=== PATIENT | female | born 1945 | race Caucasian/White ===

== ENCOUNTER 2017-06-28 17:32 | Inpatient (IN) | payer MEDICARE ==
[~2017-06-28] VITALS: Ht 165.1 cm; Wt 57.2 kg
[2017-06-28] VITALS (9 sets, daily range): BP systolic 55–139; BP diastolic 20–79
[2017-06-28] MEDS ORDERED: Isovue-300 100ml vial INJ PRN (18:00)
[2017-06-28] MEDS ORDERED: Pantoprazole Inj IVP ONE (18:00)
--- NOTE | 2017-06-28 18:05 | Emergency Room Report ---
History of Present Illness General Chief Complaint: Syncope Source: Patient, Family Member Present Illness HPI 71-year-old female presents with abdominal pain and syncopal episode that occurred today while walking She said she felt lightheaded, and she feels like she's had a lot of bowel movements, but no bloody bowel movements and no black tarry stools She reports no fevers, no chest pain, no shortness of breath, but does feel very weak in general, no focal weakness She reports she did not hit her head and has no injuries from the fall Allergies: Coded Allergies: CODEINE (Verified Allergy, Unknown, Itching, 06/28/17) NAPROXEN (Verified Allergy, Unknown, 06/28/17) Patient History Past Medical History: see triage record Reviewed Nursing Documentation: PMH: Agreed; PSxH: Agreed Nursing Documentation-PMH Hx Hypertension: Yes Review of Systems All Other Systems: negative except mentioned in HPI Physical Exam Vital Signs Date Time Temp Pulse Resp B/P (MAP) Pulse Ox O2 Delivery O2 Flow Rate FiO2 06/28/17 17:30 98.4 93 18 75/53 98 98.4 Sp02 EP Interpretation: reviewed, normal - sats normal; but bp low, abnormal General Appearance: no apparent distress, alert, non-toxic Head: normocephalic Eyes: bilateral eye normal inspection, bilateral eye PERRL, bilateral eye EOMI ENT: normal ENT inspection, hearing grossly normal, normal pharynx, no angioedema, normal voice, moist mucus membranes Neck: normal inspection, full range of motion, supple, supple/symm/no masses Respiratory: chest non-tender, lungs clear, normal breath sounds, chest symmetrical, palpation of chest normal Cardiovascular #1: normal peripheral pulses, regular rate, rhythm Cardiovascular #2: 2+ radial (R), 2+ radial (L) Gastrointestinal: normal inspection, soft, no mass, no guarding, no rebound, tenderness - Diffuse Rectal: normal exam, normal rectal tone, heme negative stool, deferred Genitourinary: normal inspection, no CVA tenderness, ext genitalia/vag normal Musculoskeletal: back normal, gait/station normal, normal range of motion, non- tender, no calf tenderness Neurologic: alert, responsive, car scrubber III-XII nml as tested, motor strength/tone normal, sensory intact, speech normal Psychiatric: judgement/insight normal, memory normal, mood/affect normal, no suicidal/homicidal ideation Skin: normal color, no rash, warm/dry, normal turgor Lymphatic: no adenopathy Procedures Critical Care Time Critical Care Time 45 minutes of CC time excluding all procedures due to persistent hypotension and need for multiple re-evaluations. Central Line Central Line : Consent: Verbal Central Line Lumen: triple Maximal Sterile Barrier Tech: yes cap, yes mask, yes sterile gown, yes sterile gloves, yes large sterile sheet, yes hand hygiene, yes chlorhexidine prep Central Line Postion: femoral (R) Complications: none Central Line Post Position: sutured, good blood return Attempts: One Patient Tolerated: Well Complications: None Progress EBL 3cc Medical Decision Making Reaction to Intervention: Improved Diagnostic Impression: Primary Impression: Syncope Additional Impression: Hypotension ER Course Patient with initial hypotension and syncope Also abdominal pain and tenderness Labs not very revealing Stool samples heme-negative Patient became persistently hypotensive despite 3 L of fluids So was ensured to give 30 mL/kg saline, blood cultures, lactic acid, broad- spectrum antibiotics However, patient remained hypotensive on repeat focused sepsis exam Therefore a central line was placed and patient started on Levophed She still had abdominal tenderness and is pending CT scan Will give 1 dose of fentanyl for analgesia, patient already had PPI and H2 brent IV Patient with possible severe gastritis versus enteritis versus colitis versus peptic ulcer despite heme-negative stool Stools sent for c. diff, O&P, cultures, I gave levaquin and vancomycin, then Invanz, Amikacin ordered by Dr. Lennon who agreed to admit to ICU EKG Diagnostic Results EKG Time: 18:19 EP Interpretation: no st-t changes or twi, qtc prolonged at 516 Rate: bradycardiac Rhythm: NSR ST Segments: no acute changes Rhythm Strip Diag. Results Rhythm Strip Time: 18:04 EP Interpretation: yes Rate: 58 Rhythm: NSR, no PVC's, no ectopy Chest X-Ray Diagnostic Results Chest X-Ray Diagnostic Results : Chest X-Ray Ordered: Yes # of Views/Limited/Complete: 1 View Indication: Other EP Interpretation: Yes Interpretation: no consolidation, no effusion, no pneumothorax, no acute cardiopulmonary disease Impression: No acute disease Electronically Signed by: Erma Georges MD CT/MRI/US Diagnostic Results CT/MRI/US Diagnostic Results : Imaging Test Ordered: cta chest, abd/pelvis Impression no PE, multiple areas of inflamed bowel Last Vital Signs Date Time Temp Pulse Resp B/P (MAP) Pulse Ox O2 Delivery O2 Flow Rate FiO2 06/28/17 17:30 98.4 93 18 75/53 98 98.4 Status: improved Disposition: ADMITTED INPATIENT Condition: Serious Signed Out To: ERMA Soto M.D June 28, 2017 18:05
[2017-06-28 18:49] LABS: BASOPHILS % (AUTO) 0.7 % (0.0-2.0); EOSINOPHILS % (AUTO) 2.5 % (0.0-3.0); HEMATOCRIT 40.1 % (37.0-47.0); HEMOGLOBIN 13.4 G/DL (12.0-16.0); MEAN CORPUSCULAR VOLUME 88 FL (80-99); MONOCYTES % (AUTO) 5.7 % (1.0-10.0); NEUTROPHILS % (AUTO) 75.2 % (45.0-75.0); PLATELET COUNT 317 K/UL (150-450); RED BLOOD COUNT 4.57 M/UL (4.20-5.40); RED CELL DISTRIBUTION WIDTH 11.6 % (11.6-14.8); WHITE BLOOD COUNT 13.3 K/UL (4.8-10.8)
[2017-06-28 19:03] LABS: ANION GAP 11 mmol/L (5-15); BLOOD UREA NITROGEN 17 mg/dL (7-18); CALCIUM 8.1 MG/DL (8.5-10.1); CARBON DIOXIDE 24 MMOL/L (21-32); CHLORIDE 106 MMOL/L (98-107); POTASSIUM 2.9 MMOL/L (3.5-5.1); SODIUM 141 MMOL/L (136-145)
[2017-06-28 19:14] LABS: APPEARANCE,URINE CLEAR; BILIRUBIN, URINE NEGATIVE (NEGATIVE); GLUCOSE, URINE (UA) NEGATIVE (NEGATIVE); KETONES,URINE NEGATIVE (NEGATIVE); LEUKOCYTE ESTERASE ,URINE NEGATIVE (NEGATIVE); NITRITE,URINE NEGATIVE (NEGATIVE); PH,URINE 5 (4.5-8.0); PROTEIN,URINE 1+ (NEGATIVE); UROBILINOGEN,URINE NORMAL MG/DL (0.0-1.0)
[2017-06-28 19:15] LABS: COLOR,URINE YELLOW
[2017-06-28 19:16] LABS: ALANINE AMINOTRANSFERASE 19 U/L (12-78); ALBUMIN 2.8 G/DL (3.4-5.0); ALBUMIN/GLOBULIN RATIO 1.3 (1.0-2.7); ALKALINE PHOSPHATASE 98 U/L (46-116); ASPARTATE AMINO TRANSFERASE 16 U/L (15-37); BILIRUBIN,TOTAL 0.5 MG/DL (0.2-1.0); CKMB 1.2 NG/ML (0.0-3.6); CREATINE KINASE 65 U/L (26-308)
[2017-06-28] MEDS ORDERED: Isovue-370 150ml vial INJ PRN (19:30)
[2017-06-28] MEDS ORDERED: fentaNYL 100 mcg/2 mL IV ONE (19:30)
[2017-06-28] MEDS ORDERED: NS 1000ml 1,600 ML IVLG ONE (21:20)
[2017-06-28] MEDS ORDERED: fentaNYL 100 mcg/2 mL IV SCH (21:20)
[2017-06-28] MEDS ORDERED: Vancomycin 1 GM in NS 275 ML IVPB ONE (21:20)
[2017-06-28] MEDS ORDERED: Potassium Chloride 40 MEQ in Sodium Chloride 500ML 550 ML IVPB ONE (22:00)
[2017-06-28] MEDS ORDERED: Miralax 17gm pkt ORAL PRN (22:30)
[2017-06-28] MEDS ORDERED: Albuterol/Ipratropium 3ml neb HHN PRN (22:30)
[2017-06-28] MEDS ORDERED: Vancomycin 500 MG in NS 110 ML IV SCH (23:15)
[2017-06-28] MEDS ORDERED: Vancomycin 1 GM in D5W 275 ML IV SCH (23:45)
[2017-06-29] VITALS (33 sets, daily range): BP systolic 92–146; BP diastolic 44–103
[2017-06-29] MEDS ORDERED: Ertapenem 1 GM in NS 55 ML IV SCH ×2
[2017-06-29] MEDS ORDERED: AMIKACIN IV SCH (01:00)
[2017-06-29] MEDS ORDERED: NS IV SCH (01:00)
[2017-06-29] MEDS: Morphine Sulfate 4mg/ml Inj IVP PRN ×2 (02:40→07:37)
[2017-06-29 04:51] LABS: ALANINE AMINOTRANSFERASE 7 U/L (12-78); ALBUMIN 2.8 G/DL (3.4-5.0); ALBUMIN/GLOBULIN RATIO 1.1 (1.0-2.7); ALKALINE PHOSPHATASE 85 U/L (46-116); ANION GAP 11 mmol/L (5-15); ASPARTATE AMINO TRANSFERASE 25 U/L (15-37); BILIRUBIN,DIRECT 0.1 MG/DL (0.0-0.3); BILIRUBIN,TOTAL 0.4 MG/DL (0.2-1.0); BLOOD UREA NITROGEN 16 mg/dL (7-18); CALCIUM 7.4 MG/DL (8.5-10.1); CARBON DIOXIDE 19 MMOL/L (21-32); CHLORIDE 112 MMOL/L (98-107); POTASSIUM 4.2 MMOL/L (3.5-5.1); SODIUM 142 MMOL/L (136-145)
[2017-06-29 07:03] LABS: HEMATOCRIT 39.3 % (37.0-47.0); MEAN CORPUSCULAR VOLUME 89 FL (80-99); PLATELET COUNT 246 K/UL (150-450); RED BLOOD COUNT 4.44 M/UL (4.20-5.40); RED CELL DISTRIBUTION WIDTH 12.1 % (11.6-14.8); WHITE BLOOD COUNT 16.2 K/UL (4.8-10.8)
[2017-06-29] MEDS ORDERED: NS 500ML ONE (09:33)
[2017-06-29] MEDS ORDERED: Tubing IV Secondary IV ONE (09:33)
[2017-06-29] MEDS: Pantoprazole Inj IVP SCH ×2 (09:39→21:19)
[2017-06-29] MEDS: Heparin 5000 units/ml inj SUBQ SCH ×2 (09:40→20:30)
--- NOTE | 2017-06-29 10:06 | Diagnostic Imaging Report ---
Indication: Chest pain Technique: Continuous helical transaxial imaging of the chest was obtained from the thoracic inlet to the upper abdomen during rapid intravenous contrast administration. Arterial phase of enhancement obtained. Coronal 2-D reformats were also obtained and maximum intensity projection images in multiple planes. Study obtained in a Siemens sensation [address] Automatic Exposure Control was utilized. Total Dose length Product (DLP): 1795.[address] Dose Index Volume (CTDIvol): 21.41,15.19,16.58 mGy Comparison: None Findings: There is reasonable opacification of the pulmonary artery. There is no filling defect to suggest pulmonary embolus. The aorta show some mural calcium. There is no evidence of dissection or aneurysm involving the thoracic. Heterogeneity of the thyroid gland noted. There is no airspace disease within the lungs identified. Minimal basilar atelectasis noted. No adenopathy or abnormal fluid collections are seen within the chest. The axilla appear clear bilaterally. IMPRESSION: No acute findings. No evidence of pulmonary embolus. Heterogeneous thyroid gland. Consider further evaluation with ultrasound Other incidental findings as above. [facility] has communicated the preliminary results to the Emergency Department. Their findings are largely concordant with this report. The CT scanner at [facility] is accredited by the [employer] and the scans are performed using dose optimization techniques as appropriate to a performed exam including Automatic Exposure control.
--- NOTE | 2017-06-29 10:37 | Diagnostic Imaging Report ---
Indication: Abdominal pain Technique: Continuous helical transaxial imaging of the abdomen and pelvis was obtained from the lung bases to the pubic symphysis during intravenous contrast administration. Coronal 2-D reformats were also obtained. Study obtained in a Siemens sensation [address] Automatic Exposure Control was utilized. Total Dose length Product (DLP): 1795.[address] Dose Index Volume (CTDIvol): 21.41,15.19,16.58 mGy Comparison: None Findings: There is diffuse abnormality of multiple loops of small bowel which demonstrate wall thickening and enhancement. The findings are indicative of diffuse enteritis. There is also likely colitis presently given the enhancement of the wall of the colon. In terms of the colon of the main area of thickening involves the left hemicolon wall. Please correlate clinically. There is a small amount of ascites. There is a nodular enhancing lesion within the right lobe of the liver in the posterior segment likely a hemangioma measuring about 3 cm. This may be further evaluated. There is a 4-5 cm lobulated cystic liver focus adjacent to the intrahepatic portion of IVC right at the confluence of the middle hepatic vein and right hepatic vein. Other smaller cystic foci noted within the liver. Cholecystectomy is present. The biliary ducts are mildly prominent especially the CBD. There is no evidence on this exam for CBD stone. There is a right femoral venous catheter with the tip situated in the right common iliac vein in good position. IMPRESSION: Diffuse enterocolitis with the wall thickening and abnormal enhancement of multiple loops of small bowel as well as colon. Please correlate clinically. Mild ascites Hemangioma suspected within the right lobe of the liver. Prominent liver cyst. Atherosclerotic disease. Degenerative changes of the spine. Other incidental findings as above. [facility] has communicated the preliminary results to the Emergency Department. Their findings are largely concordant with this report. The CT scanner at [facility] is accredited by the [employer] and the scans are performed using dose optimization techniques as appropriate to a performed exam including Automatic Exposure control.
--- NOTE | 2017-06-29 11:27 | History and Physical ---
History of Present Illness General Date patient seen: June 29, 2017 Reason for Hospitalization: Syncope Present Illness HPI 71-year-old female with hx of IBD brought in by paramedics with CC of abdominal pain, diarrhea and syncopal episode that occurred today while walking. She reported no fevers, no chest pain, no shortness of breath, but did feel very weak in general, no focal weakness. She was bradycardic and hypotensive in ER. She was started on Levophed drip and IV fluids and transferred to ICU. Allergies: Coded Allergies: CODEINE (Verified Allergy, Unknown, Itching, 06/28/17) NAPROXEN (Verified Allergy, Unknown, 06/28/17) Patient History Healthcare decision maker Resuscitation status Advanced Directive on File No Past Medical/Surgical History Past Medical/Surgical History: (1) IBD (inflammatory bowel disease) Review of Systems All Other Systems: negative except mentioned in HPI Physical Exam General Appearance: cachetic Lines, tubes and drains: peripheral HEENT: normocephalic, atraumatic Neck: non-tender, normal alignment Respiratory/Chest: chest wall non-tender, lungs clear Breasts: no masses Cardiovascular/Chest: normal peripheral pulses, normal rate Abdomen: normal bowel sounds, non tender Genitourinary/Rectal: normal genital exam Extremities: normal range of motion Skin Exam: normal pigmentation Neurologic: community specialist II-XII grossly normal Last 24 Hour Vital Signs Date Time Temp Pulse Resp B/P (MAP) Pulse Ox O2 Delivery O2 Flow Rate FiO2 06/29/17 10:20 97.8 06/29/17 09:40 97.8 06/29/17 09:00 85 21 113/56 99 Room Air 06/29/17 08:00 83 20 104/47 100 Room Air 06/29/17 08:00 84 06/29/17 07:37 97.8 06/29/17 07:00 82 23 106/54 100 Room Air 06/29/17 06:00 82 24 134/65 100 Room Air 06/29/17 05:45 82 24 106/64 100 Room Air 06/29/17 05:30 82 24 114/63 99 Room Air 06/29/17 05:30 97.8 06/29/17 05:15 83 23 114/63 99 Room Air 06/29/17 05:00 83 23 92/61 99 Room Air 06/29/17 05:00 92/70 06/29/17 04:30 76 23 121/61 99 Room Air 06/29/17 04:01 97.8 06/29/17 04:00 97.9 74 23 113/57 99 Room Air 97.9 06/29/17 04:00 72 06/29/17 04:00 113/51 06/29/17 03:30 73 19 97/58 99 Room Air 06/29/17 03:00 73 16 102/55 100 Room Air 06/29/17 03:00 97/58 06/29/17 02:40 97.8 06/29/17 02:30 80 20 97/49 100 Room Air 06/29/17 02:00 117/58 06/29/17 02:00 74 20 117/58 100 Room Air 06/29/17 01:30 79 20 125/88 99 Room Air 06/29/17 01:15 80 21 120/64 100 Room Air 06/29/17 01:00 125/88 06/29/17 01:00 78 22 122/70 100 Room Air 06/29/17 00:45 79 21 108/59 100 Room Air 06/29/17 00:30 79 23 120/46 100 Room Air 06/29/17 00:15 75 22 116/44 92 Room Air 06/29/17 00:00 97.8 69 20 146/103 100 Room Air 97.8 06/29/17 00:00 146/103 06/28/17 23:45 64 17 120/53 100 Room Air 06/28/17 23:45 68/52 06/28/17 23:30 70 19 68/52 98 Room Air 06/28/17 23:19 62 06/28/17 23:15 73 18 139/65 99 Room Air 06/28/17 23:00 145/121 06/28/17 23:00 97.7 62 16 127/56 100 Room Air 97.7 06/28/17 22:48 98.4 49 14 121/79 100 98.4 06/28/17 21:54 98.4 49 14 121/79 100 98.4 06/28/17 21:40 81/46 06/28/17 21:35 85/47 06/28/17 21:30 84/44 06/28/17 20:47 98.4 49 14 116/54 100 98.4 06/28/17 20:31 78/42 06/28/17 20:30 90/42 06/28/17 20:25 54/45 06/28/17 20:24 71/47 06/28/17 20:20 81/51 06/28/17 20:15 71/47 06/28/17 19:19 98.4 49 14 85/47 100 98.4 06/28/17 18:00 57 11 55/20 99 06/28/17 17:35 98.4 18 75/53 98 98.4 06/28/17 17:30 98.4 93 18 75/53 98 98.4 Intake and Output 06/28/17 06/29/17 19:00 07:00 Intake Total 3000 ml 973.37 ml Balance 3000 ml 973.37 ml Intake IV Total 973.37 ml Other 3000 ml Laboratory Tests Test 06/28/17 18:20 06/29/17 04:00 06/29/17 06:00 06/29/17 08:37 White Blood Count 13.3 K/UL (4.8-10.8) H 16.2 K/UL (4.8-10.8) H Red Blood Count 4.57 M/UL (4.20-5.40) 4.44 M/UL (4.20-5.40) Hemoglobin 13.4 G/DL (12.0-16.0) 13.0 G/DL (12.0-16.0) Hematocrit 40.1 % (37.0-47.0) 39.3 % (37.0-47.0) Mean Corpuscular Volume 88 FL (80-99) 89 FL (80-99) Mean Corpuscular Hemoglobin 29.4 PG (27.0-31.0) 29.2 PG (27.0-31.0) Mean Corpuscular Hemoglobin Concent 33.5 G/DL (32.0-36.0) 33.0 G/DL (32.0-36.0) Red Cell Distribution Width 11.6 % (11.6-14.8) 12.1 % (11.6-14.8) Platelet Count 317 K/UL (150-450) 246 K/UL (150-450) Mean Platelet Volume 6.0 FL (6.5-10.1) L 6.3 FL (6.5-10.1) L Neutrophils (%) (Auto) 75.2 % (45.0-75.0) H % (45.0-75.0) Lymphocytes (%) (Auto) 16.0 % (20.0-45.0) L % (20.0-45.0) Monocytes (%) (Auto) 5.7 % (1.0-10.0) % (1.0-10.0) Eosinophils (%) (Auto) 2.5 % (0.0-3.0) % (0.0-3.0) Basophils (%) (Auto) 0.7 % (0.0-2.0) % (0.0-2.0) Urine Color Yellow Urine Appearance Clear Urine pH 5 (4.5-8.0) Urine Specific [place] 1.015 (1.005-1.035) Urine Protein 1+ (NEGATIVE) H Urine Glucose (UA) Negative (NEGATIVE) Urine Ketones Negative (NEGATIVE) Urine Occult Blood 2+ (NEGATIVE) H Urine Nitrite Negative (NEGATIVE) Urine Bilirubin Negative (NEGATIVE) Urine Urobilinogen Normal MG/DL (0.0-1.0) Urine Leukocyte Esterase Negative (NEGATIVE) Urine RBC 2-4 /HPF (0 - 2) H Urine WBC 0-2 /HPF (0 - 2) Urine Squamous Epithelial Cells Occasional /LPF Urine Bacteria Few /HPF (NONE) Sodium Level 141 MMOL/L (136-145) 142 MMOL/L (136-145) Potassium Level 2.9 MMOL/L (3.5-5.1) L 4.2 MMOL/L (3.5-5.1) Chloride Level 106 MMOL/L (98-107) 112 MMOL/L (98-107) H Carbon Dioxide Level 24 MMOL/L (21-32) 19 MMOL/L (21-32) L Anion Gap 11 mmol/L (5-15) 11 mmol/L (5-15) Blood Urea Nitrogen 17 mg/dL (7-18) 16 mg/dL (7-18) Creatinine 1.0 MG/DL (0.55-1.30) 1.0 MG/DL (0.55-1.30) Estimat Glomerular Filtration Rate mL/min (>60) mL/min (>60) Glucose Level 226 MG/DL (74-106) H 117 MG/DL (74-106) #H Lactic Acid Level 2.40 mmol/L (0.66-2.22) H 1.50 mmol/L (0.66-2.22) Calcium Level 8.1 MG/DL (8.5-10.1) L 7.4 MG/DL (8.5-10.1) L Total Bilirubin 0.5 MG/DL (0.2-1.0) 0.4 MG/DL (0.2-1.0) Aspartate Amino Transf (AST/SGOT) 16 U/L (15-37) 25 U/L (15-37) Alanine Aminotransferase (ALT/SGPT) 19 U/L (12-78) 7 U/L (12-78) L Alkaline Phosphatase 98 U/L (46-116) 85 U/L (46-116) Total Creatine Kinase 65 U/L (26-308) Creatine Kinase MB 1.2 NG/ML (0.0-3.6) Creatine Kinase MB Relative Index 1.8 Troponin I 0.000 ng/mL (0.000-0.056) Total Protein 5.0 G/DL (6.4-8.2) L 5.4 G/DL (6.4-8.2) L Albumin 2.8 G/DL (3.4-5.0) L 2.8 G/DL (3.4-5.0) L Globulin 2.2 g/dL 2.6 g/dL Albumin/Globulin Ratio 1.3 (1.0-2.7) 1.1 (1.0-2.7) Lipase 125 U/L (73-393) Direct Bilirubin 0.1 MG/DL (0.0-0.3) Differential Total Cells Counted 100 Neutrophils % (Manual) 93 % (45-75) H Lymphocytes % (Manual) 4 % (20-45) L Monocytes % (Manual) 3 % (1-10) Eosinophils % (Manual) 0 % (0-3) Basophils % (Manual) 0 % (0-2) Band Neutrophils 0 % (0-8) Platelet Estimate Adequate Platelet Morphology Normal Red Blood Cell Morphology Normal Arterial Blood pH 7.325 (7.350-7.450) Arterial Blood Partial Pressure CO2 38.4 mmHg (35.0-45.0) Arterial Blood Partial Pressure O2 80.3 mmHg (75.0-100.0) Arterial Blood HCO3 19.6 mmol/L (22.0-26.0) L Arterial Blood Oxygen Saturation 95.2 % (92.0-98.0) Arterial Blood Base Excess -5.9 Eduin Test Positive Height (Feet): 5 Height (Inches): 5.00 Weight (Pounds): 125 Medications Current Medications Medications (Trade) Dose Ordered Sig/Michael Route PRN Reason Start Time Stop Time Status Last Admin Dose Admin Acetaminophen (Tylenol) 650 mg Q4H PRN ORAL fever 06/28/17 22:30 07/28/17 22:29 06/29/17 10:20 Albuterol/ Ipratropium (Albuterol/ Ipratropium) 3 ml EVERY 4 HOURS PRN HHN Shortness of Breath 06/28/17 22:30 07/03/17 22:29 Amikacin Sulfate 780 mg/Sodium Chloride 113.12 ml @ 113.12 mls/hr Q36H IV 06/29/17 01:00 07/06/17 00:59 06/29/17 01:03 Ertapenem 1 gm/ Sodium Chloride 55 ml @ 110 mls/hr Q24H IV 06/29/17 00:00 07/04/17 00:00 06/29/17 00:30 Heparin Sodium (Porcine) (Heparin 5000 units/ml) 5,000 units EVERY 12 HOURS SUBQ 06/29/17 09:00 07/29/17 08:59 06/29/17 09:40 Iopamidol (Isovue-300 100ml) 100 ml NOW PRN INJ Radiology Procedure 06/28/17 18:00 Iopamidol (Isovue-370 150ml) 150 ml NOW PRN INJ Radiology Procedure 06/28/17 19:30 06/30/17 19:22 Levofloxacin 150 ml @ 150 mls/hr Q24H IVPB 06/28/17 23:00 06/29/17 22:59 06/28/17 23:09 Morphine Sulfate (Morphine Sulfate) 2 mg Q4H PRN IVP For Pain 06/29/17 02:00 07/06/17 01:59 06/29/17 07:37 Norepinephrine Bitartrate 4 mg/ Dextrose 254 ml @ 0 mls/hr Q24H IV 06/28/17 22:30 07/28/17 22:29 06/28/17 23:45 Ondansetron HCl (Zofran) 4 mg Q6H PRN IVP Nausea & Vomiting 06/28/17 22:30 07/28/17 22:29 06/29/17 06:21 Pantoprazole (Protonix) 40 mg DAILY IVP 06/29/17 09:00 07/29/17 08:59 06/29/17 09:39 Polyethylene Glycol (Miralax) 17 gm DAILYPRN PRN ORAL Constipation 06/28/17 22:30 07/28/17 22:29 Sodium Chloride 1,000 ml @ 100 mls/hr Q10H IVLG 06/28/17 22:17 07/28/17 22:16 06/29/17 09:39 Vancomycin HCl 500 mg/Sodium Chloride 110 ml @ 110 mls/hr ONCE IV 06/28/17 23:15 07/03/17 23:14 06/29/17 00:25 Vancomycin HCl 1 gm/Sodium Chloride 275 ml @ 183.3 mls/ hr Q24H IVPB 06/30/17 00:00 07/05/17 00:00 Assessment/Plan Problem List: (1) Shock ICD Codes: R57.9 - Shock, unspecified SNOMED: 24933850 (2) Acute encephalopathy ICD Codes: G93.40 - Encephalopathy, unspecified SNOMED: 87226540, 619470298 (3) Hypotension ICD Codes: I95.9 - Hypotension, unspecified SNOMED: 43231983 (4) Syncope ICD Codes: R55 - Syncope and collapse SNOMED: 985629787 (5) IBD (inflammatory bowel disease) ICD Codes: K52.9 - Noninfective gastroenteritis and colitis, unspecified SNOMED: 74736521 Assessment/Plan iv fluids titrate Levophed to MBP of 60 NS at 100 cc/hour stool panculture dvt prophylaxis GI evaluation Orville Lennon MD June 29, 2017 11:27
--- NOTE | 2017-06-29 11:34 | Diagnostic Imaging Report ---
Indication: Dyspnea Comparison: None A single view chest radiograph was obtained. Findings: Cardiomediastinal appearance is within normal limits for age. Aorta is slightly enlarged consistent with atherosclerosis. Pulmonary vascularity is appropriate. The diaphragmatic contour is smooth and costophrenic angles are sharp. No pleural effusions are identified. The bones are osteopenic. Impression: No acute findings
--- NOTE | 2017-06-29 12:19 | GI Initial Consult Note ---
History of Present Illness General Date patient seen: June 29, 2017 Time patient seen: 13:00 Reason for Hospitalization: Syncope Referring physician: PRINCESS HARRIS Reason for Consultation: COLITIS Present Illness HPI 71-year-old female presents with abdominal pain and syncopal episode that occurred today while walking She said she felt lightheaded, and she feels like she's had a lot of bowel movements, but no bloody bowel movements and no black tarry stools She reports no fevers, no chest pain, no shortness of breath, but does feel very weak in general, no focal weakness She reports she did not hit her head and has no injuries from the fall Med list reviewed/reconciled: Yes Allergies: Coded Allergies: CODEINE (Verified Allergy, Unknown, Itching, 06/28/17) NAPROXEN (Verified Allergy, Unknown, 06/28/17) Patient History PMH Narrative Past Medical History: see triage record Reviewed Nursing Documentation: PMH: Agreed; PSxH: Agreed Nursing Documentation-PMH Hx Hypertension: Yes Social History: Denies: smoking, alcohol use, drug use, other Review of Systems All Other Systems: negative except mentioned in HPI Physical Exam Vital Signs Date Time Temp Pulse Resp B/P (MAP) Pulse Ox O2 Delivery O2 Flow Rate FiO2 06/28/17 17:30 98.4 93 18 75/53 98 98.4 06/28/17 23:00 Room Air Sp02 EP Interpretation: reviewed, normal Labs Laboratory Tests Test 06/28/17 18:20 06/29/17 04:00 06/29/17 06:00 06/29/17 08:37 White Blood Count 13.3 K/UL (4.8-10.8) H 16.2 K/UL (4.8-10.8) H Red Blood Count 4.57 M/UL (4.20-5.40) 4.44 M/UL (4.20-5.40) Hemoglobin 13.4 G/DL (12.0-16.0) 13.0 G/DL (12.0-16.0) Hematocrit 40.1 % (37.0-47.0) 39.3 % (37.0-47.0) Mean Corpuscular Volume 88 FL (80-99) 89 FL (80-99) Mean Corpuscular Hemoglobin 29.4 PG (27.0-31.0) 29.2 PG (27.0-31.0) Mean Corpuscular Hemoglobin Concent 33.5 G/DL (32.0-36.0) 33.0 G/DL (32.0-36.0) Red Cell Distribution Width 11.6 % (11.6-14.8) 12.1 % (11.6-14.8) Platelet Count 317 K/UL (150-450) 246 K/UL (150-450) Mean Platelet Volume 6.0 FL (6.5-10.1) L 6.3 FL (6.5-10.1) L Neutrophils (%) (Auto) 75.2 % (45.0-75.0) H % (45.0-75.0) Lymphocytes (%) (Auto) 16.0 % (20.0-45.0) L % (20.0-45.0) Monocytes (%) (Auto) 5.7 % (1.0-10.0) % (1.0-10.0) Eosinophils (%) (Auto) 2.5 % (0.0-3.0) % (0.0-3.0) Basophils (%) (Auto) 0.7 % (0.0-2.0) % (0.0-2.0) Urine Color Yellow Urine Appearance Clear Urine pH 5 (4.5-8.0) Urine Specific [place] 1.015 (1.005-1.035) Urine Protein 1+ (NEGATIVE) H Urine Glucose (UA) Negative (NEGATIVE) Urine Ketones Negative (NEGATIVE) Urine Occult Blood 2+ (NEGATIVE) H Urine Nitrite Negative (NEGATIVE) Urine Bilirubin Negative (NEGATIVE) Urine Urobilinogen Normal MG/DL (0.0-1.0) Urine Leukocyte Esterase Negative (NEGATIVE) Urine RBC 2-4 /HPF (0 - 2) H Urine WBC 0-2 /HPF (0 - 2) Urine Squamous Epithelial Cells Occasional /LPF Urine Bacteria Few /HPF (NONE) Sodium Level 141 MMOL/L (136-145) 142 MMOL/L (136-145) Potassium Level 2.9 MMOL/L (3.5-5.1) L 4.2 MMOL/L (3.5-5.1) Chloride Level 106 MMOL/L (98-107) 112 MMOL/L (98-107) H Carbon Dioxide Level 24 MMOL/L (21-32) 19 MMOL/L (21-32) L Anion Gap 11 mmol/L (5-15) 11 mmol/L (5-15) Blood Urea Nitrogen 17 mg/dL (7-18) 16 mg/dL (7-18) Creatinine 1.0 MG/DL (0.55-1.30) 1.0 MG/DL (0.55-1.30) Estimat Glomerular Filtration Rate mL/min (>60) mL/min (>60) Glucose Level 226 MG/DL (74-106) H 117 MG/DL (74-106) #H Lactic Acid Level 2.40 mmol/L (0.66-2.22) H 1.50 mmol/L (0.66-2.22) Calcium Level 8.1 MG/DL (8.5-10.1) L 7.4 MG/DL (8.5-10.1) L Total Bilirubin 0.5 MG/DL (0.2-1.0) 0.4 MG/DL (0.2-1.0) Aspartate Amino Transf (AST/SGOT) 16 U/L (15-37) 25 U/L (15-37) Alanine Aminotransferase (ALT/SGPT) 19 U/L (12-78) 7 U/L (12-78) L Alkaline Phosphatase 98 U/L (46-116) 85 U/L (46-116) Total Creatine Kinase 65 U/L (26-308) Creatine Kinase MB 1.2 NG/ML (0.0-3.6) Creatine Kinase MB Relative Index 1.8 Troponin I 0.000 ng/mL (0.000-0.056) Total Protein 5.0 G/DL (6.4-8.2) L 5.4 G/DL (6.4-8.2) L Albumin 2.8 G/DL (3.4-5.0) L 2.8 G/DL (3.4-5.0) L Globulin 2.2 g/dL 2.6 g/dL Albumin/Globulin Ratio 1.3 (1.0-2.7) 1.1 (1.0-2.7) Lipase 125 U/L (73-393) Direct Bilirubin 0.1 MG/DL (0.0-0.3) Differential Total Cells Counted 100 Neutrophils % (Manual) 93 % (45-75) H Lymphocytes % (Manual) 4 % (20-45) L Monocytes % (Manual) 3 % (1-10) Eosinophils % (Manual) 0 % (0-3) Basophils % (Manual) 0 % (0-2) Band Neutrophils 0 % (0-8) Platelet Estimate Adequate Platelet Morphology Normal Red Blood Cell Morphology Normal Arterial Blood pH 7.325 (7.350-7.450) Arterial Blood Partial Pressure CO2 38.4 mmHg (35.0-45.0) Arterial Blood Partial Pressure O2 80.3 mmHg (75.0-100.0) Arterial Blood HCO3 19.6 mmol/L (22.0-26.0) L Arterial Blood Oxygen Saturation 95.2 % (92.0-98.0) Arterial Blood Base Excess -5.9 Eduin Test Positive General Appearance: well appearing, no apparent distress, alert Head: normocephalic EENT: PERRL/EOMI, normal ENT inspection Neck: supple Respiratory: normal breath sounds, no respiratory distress Cardiovascular: normal rate Gastrointestinal: normal inspection, non tender, soft, normal bowel sounds, non -distended Rectal: deferred Genitourinary: no CVA tenderness Musculoskeletal: normal inspection, back normal Neurologic: normal inspection, alert, oriented x3, responsive Psychiatric: normal inspection, judgement/insight normal, memory normal Skin: normal inspection, normal color, no rash, warm/dry, palpation normal, well hydrated Lymphatic: normal inspection, no adenopathy Current Medications Current Medications Medications (Trade) Dose Ordered Sig/Michael Route PRN Reason Start Time Stop Time Status Last Admin Dose Admin Acetaminophen (Tylenol) 650 mg Q4H PRN ORAL fever 06/28/17 22:30 07/28/17 22:29 06/29/17 10:20 Albuterol/ Ipratropium (Albuterol/ Ipratropium) 3 ml EVERY 4 HOURS PRN HHN Shortness of Breath 06/28/17 22:30 07/03/17 22:29 Amikacin Sulfate 780 mg/Sodium Chloride 113.12 ml @ 113.12 mls/hr Q36H IV 06/29/17 01:00 07/06/17 00:59 06/29/17 01:03 Ertapenem 1 gm/ Sodium Chloride 55 ml @ 110 mls/hr Q24H IV 06/29/17 00:00 07/04/17 00:00 06/29/17 00:30 Heparin Sodium (Porcine) (Heparin 5000 units/ml) 5,000 units EVERY 12 HOURS SUBQ 06/29/17 09:00 07/29/17 08:59 06/29/17 09:40 Iopamidol (Isovue-300 100ml) 100 ml NOW PRN INJ Radiology Procedure 06/28/17 18:00 Iopamidol (Isovue-370 150ml) 150 ml NOW PRN INJ Radiology Procedure 06/28/17 19:30 06/30/17 19:22 Levofloxacin 150 ml @ 150 mls/hr Q24H IVPB 06/28/17 23:00 06/29/17 22:59 06/28/17 23:09 Morphine Sulfate (Morphine Sulfate) 2 mg Q4H PRN IVP For Pain 06/29/17 02:00 07/06/17 01:59 06/29/17 07:37 Norepinephrine Bitartrate 4 mg/ Dextrose 254 ml @ 0 mls/hr Q24H IV 06/28/17 22:30 07/28/17 22:29 06/28/17 23:45 Ondansetron HCl (Zofran) 4 mg Q6H PRN IVP Nausea & Vomiting 06/28/17 22:30 07/28/17 22:29 06/29/17 06:21 Pantoprazole (Protonix) 40 mg DAILY IVP 06/29/17 09:00 07/29/17 08:59 06/29/17 09:39 Polyethylene Glycol (Miralax) 17 gm DAILYPRN PRN ORAL Constipation 06/28/17 22:30 07/28/17 22:29 Sodium Chloride 1,000 ml @ 100 mls/hr Q10H IVLG 06/28/17 22:17 07/28/17 22:16 06/29/17 09:39 Vancomycin HCl 500 mg/Sodium Chloride 110 ml @ 110 mls/hr ONCE IV 06/28/17 23:15 07/03/17 23:14 06/29/17 00:25 Vancomycin HCl 1 gm/Sodium Chloride 275 ml @ 183.3 mls/ hr Q24H IVPB 06/30/17 00:00 07/05/17 00:00 GI: Plan Problems: (1) Enterocolitis (2) IBD (inflammatory bowel disease) Plan recent dietary change CT reviewed >> Diffuse enterocolitis. hx of sigmoid resection for rectal prolapse hx of cholecystectomy recent colonoscopy x 2 years >> unremarkable rectal bleeding at times, most likely hemorrhoidal stable H&H cdiff negative symptomatic treatment adv to soft ADA diet stool studies, O&P pain mgmt ppi electrolyte correction abx fu labs Discussed with Dr. Julio. Thank you for this patient referral, we will follow. The patient was seen and examined at bedside and all new and available data was reviewed in the patients chart. I agree with the above findings, impression and plan. (Patient seen earlier today. Signature stamp does not reflect patient encounter time.). - MD Bessy Cabral AnhCarlos REMY June 29, 2017 12:19
[2017-06-29] MEDS ORDERED: Morphine Sulfate 4mg/ml Inj IVP PRN (12:30)
--- NOTE | 2017-06-29 15:37 | Consultation ---
History of Present Illness General Date patient seen: June 29, 2017 Chief Complaint: Syncope Present Illness HPI 71 y/o F with hx of IBS, s/p sigmoid resection for rectal prolapse, s/p cholecystectomy presents to ED on 06/28 after syncopal episode. Patient refers that days prior she was doing fine with no fever, chills, diarrhea. She refers having IBS for years and had about 3 episodes of lightheadness and pre-syncopal episodes before but nothing like this. She had colonoscopy 2 years ago and was told was normal. Has never had been diagnosed with IBD. After she he syncopal episode, she refer the need to have a bowel movement and abd discomfort. In the hospital she had multiple episodes of watery stools. Today none so far. CT abd showed diffuse enterocolitis. In the ED was bradycardic and hypotensive, started on Levophed and admitted to ICU. Denies f/c, CP, SOB. +generalized weakness, lightheadedness Afebrile. leukocytosis, Cdiff eng. now off pressors She is visiting daughter that lives in [facility]. Arrived to [place] last week from [place], [place]. Mainly has stayed in the house taking care of her daughter who had surgery. Her daughter and her has basically ate the same thing in the last few days and daughter does not had GI symptoms. Allergies: Coded Allergies: CODEINE (Verified Allergy, Unknown, Itching, 06/28/17) NAPROXEN (Verified Allergy, Unknown, 06/28/17) Patient History Healthcare decision maker Resuscitation status Advanced Directive on File No Patient History Narrative Pmhx: as above Shx: reviewed Fhx: non contributory Review of Systems All Other Systems: negative except mentioned in HPI Physical Exam Physical Exam Narrative General Appearance: cachetic Lines, tubes and drains: peripheral HEENT: normocephalic, atraumatic Neck: non-tender, normal alignment Respiratory/Chest: chest wall non-tender, lungs clear Cardiovascular/Chest: normal peripheral pulses, normal rate Abdomen: normal bowel sounds, non tender Extremities: normal range of motion Skin Exam: normal pigmentation Last 24 Hour Vital Signs Date Time Temp Pulse Resp B/P (MAP) Pulse Ox O2 Delivery O2 Flow Rate FiO2 06/29/17 14:05 97.8 06/29/17 14:00 80 21 130/59 100 Room Air 06/29/17 13:23 97.8 5/10/18 13:00 80 17 98/54 100 Room Air 06/29/17 12:00 86 18 124/61 99 Room Air 06/29/17 11:20 97.8 06/29/17 11:00 82 21 110/52 100 Room Air 06/29/17 10:20 97.8 06/29/17 10:00 85 21 94/75 99 Room Air 06/29/17 09:40 97.8 06/29/17 09:00 85 21 113/56 99 Room Air 06/29/17 08:00 98.5 83 20 104/47 100 Room Air 98.5 06/29/17 08:00 84 06/29/17 07:37 97.8 06/29/17 07:00 82 23 106/54 100 Room Air 06/29/17 06:00 82 24 134/65 100 Room Air 06/29/17 05:45 82 24 106/64 100 Room Air 06/29/17 05:30 82 24 114/63 99 Room Air 06/29/17 05:15 83 23 114/63 99 Room Air 06/29/17 05:00 83 23 92/61 99 Room Air 06/29/17 05:00 92/70 06/29/17 04:30 76 23 121/61 99 Room Air 06/29/17 04:01 97.8 06/29/17 04:00 97.9 74 23 113/57 99 Room Air 97.9 06/29/17 04:00 72 06/29/17 04:00 113/51 06/29/17 03:30 73 19 97/58 99 Room Air 06/29/17 03:00 73 16 102/55 100 Room Air 06/29/17 03:00 97/58 06/29/17 02:40 97.8 06/29/17 02:30 80 20 97/49 100 Room Air 06/29/17 02:00 117/58 06/29/17 02:00 74 20 117/58 100 Room Air 06/29/17 01:30 79 20 125/88 99 Room Air 06/29/17 01:15 80 21 120/64 100 Room Air 06/29/17 01:00 125/88 06/29/17 01:00 78 22 122/70 100 Room Air 06/29/17 00:45 79 21 108/59 100 Room Air 06/29/17 00:30 79 23 120/46 100 Room Air 06/29/17 00:15 75 22 116/44 92 Room Air 06/29/17 00:00 97.8 69 20 146/103 100 Room Air 97.8 06/29/17 00:00 146/103 06/28/17 23:45 64 17 120/53 100 Room Air 06/28/17 23:45 68/52 06/28/17 23:30 70 19 68/52 98 Room Air 06/28/17 23:19 62 06/28/17 23:15 73 18 139/65 99 Room Air 06/28/17 23:00 145/121 06/28/17 23:00 97.7 62 16 127/56 100 Room Air 97.7 06/28/17 22:48 98.4 49 14 121/79 100 98.4 06/28/17 21:54 98.4 49 14 121/79 100 98.4 06/28/17 21:40 81/46 06/28/17 21:35 85/47 06/28/17 21:30 84/44 06/28/17 20:47 98.4 49 14 116/54 100 98.4 06/28/17 20:31 78/42 06/28/17 20:30 90/42 06/28/17 20:25 54/45 06/28/17 20:24 71/47 06/28/17 20:20 81/51 06/28/17 20:15 71/47 06/28/17 19:19 98.4 49 14 85/47 100 98.4 06/28/17 18:00 57 11 55/20 99 06/28/17 17:35 98.4 18 75/53 98 98.4 06/28/17 17:30 98.4 93 18 75/53 98 98.4 Intake and Output 06/28/17 06/29/17 19:00 07:00 Intake Total 3000 ml 1073.37 ml Balance 3000 ml 1073.37 ml Intake IV Total 1073.37 ml Other 3000 ml Laboratory Tests Test 06/28/17 18:20 06/29/17 04:00 06/29/17 06:00 06/29/17 08:37 White Blood Count 13.3 K/UL (4.8-10.8) H 16.2 K/UL (4.8-10.8) H Red Blood Count 4.57 M/UL (4.20-5.40) 4.44 M/UL (4.20-5.40) Hemoglobin 13.4 G/DL (12.0-16.0) 13.0 G/DL (12.0-16.0) Hematocrit 40.1 % (37.0-47.0) 39.3 % (37.0-47.0) Mean Corpuscular Volume 88 FL (80-99) 89 FL (80-99) Mean Corpuscular Hemoglobin 29.4 PG (27.0-31.0) 29.2 PG (27.0-31.0) Mean Corpuscular Hemoglobin Concent 33.5 G/DL (32.0-36.0) 33.0 G/DL (32.0-36.0) Red Cell Distribution Width 11.6 % (11.6-14.8) 12.1 % (11.6-14.8) Platelet Count 317 K/UL (150-450) 246 K/UL (150-450) Mean Platelet Volume 6.0 FL (6.5-10.1) L 6.3 FL (6.5-10.1) L Neutrophils (%) (Auto) 75.2 % (45.0-75.0) H % (45.0-75.0) Lymphocytes (%) (Auto) 16.0 % (20.0-45.0) L % (20.0-45.0) Monocytes (%) (Auto) 5.7 % (1.0-10.0) % (1.0-10.0) Eosinophils (%) (Auto) 2.5 % (0.0-3.0) % (0.0-3.0) Basophils (%) (Auto) 0.7 % (0.0-2.0) % (0.0-2.0) Urine Color Yellow Urine Appearance Clear Urine pH 5 (4.5-8.0) Urine Specific [place] 1.015 (1.005-1.035) Urine Protein 1+ (NEGATIVE) H Urine Glucose (UA) Negative (NEGATIVE) Urine Ketones Negative (NEGATIVE) Urine Occult Blood 2+ (NEGATIVE) H Urine Nitrite Negative (NEGATIVE) Urine Bilirubin Negative (NEGATIVE) Urine Urobilinogen Normal MG/DL (0.0-1.0) Urine Leukocyte Esterase Negative (NEGATIVE) Urine RBC 2-4 /HPF (0 - 2) H Urine WBC 0-2 /HPF (0 - 2) Urine Squamous Epithelial Cells Occasional /LPF Urine Bacteria Few /HPF (NONE) Sodium Level 141 MMOL/L (136-145) 142 MMOL/L (136-145) Potassium Level 2.9 MMOL/L (3.5-5.1) L 4.2 MMOL/L (3.5-5.1) Chloride Level 106 MMOL/L (98-107) 112 MMOL/L (98-107) H Carbon Dioxide Level 24 MMOL/L (21-32) 19 MMOL/L (21-32) L Anion Gap 11 mmol/L (5-15) 11 mmol/L (5-15) Blood Urea Nitrogen 17 mg/dL (7-18) 16 mg/dL (7-18) Creatinine 1.0 MG/DL (0.55-1.30) 1.0 MG/DL (0.55-1.30) Estimat Glomerular Filtration Rate mL/min (>60) mL/min (>60) Glucose Level 226 MG/DL (74-106) H 117 MG/DL (74-106) #H Lactic Acid Level 2.40 mmol/L (0.66-2.22) H 1.50 mmol/L (0.66-2.22) Calcium Level 8.1 MG/DL (8.5-10.1) L 7.4 MG/DL (8.5-10.1) L Total Bilirubin 0.5 MG/DL (0.2-1.0) 0.4 MG/DL (0.2-1.0) Aspartate Amino Transf (AST/SGOT) 16 U/L (15-37) 25 U/L (15-37) Alanine Aminotransferase (ALT/SGPT) 19 U/L (12-78) 7 U/L (12-78) L Alkaline Phosphatase 98 U/L (46-116) 85 U/L (46-116) Total Creatine Kinase 65 U/L (26-308) Creatine Kinase MB 1.2 NG/ML (0.0-3.6) Creatine Kinase MB Relative Index 1.8 Troponin I 0.000 ng/mL (0.000-0.056) Total Protein 5.0 G/DL (6.4-8.2) L 5.4 G/DL (6.4-8.2) L Albumin 2.8 G/DL (3.4-5.0) L 2.8 G/DL (3.4-5.0) L Globulin 2.2 g/dL 2.6 g/dL Albumin/Globulin Ratio 1.3 (1.0-2.7) 1.1 (1.0-2.7) Lipase 125 U/L (73-393) Direct Bilirubin 0.1 MG/DL (0.0-0.3) Differential Total Cells Counted 100 Neutrophils % (Manual) 93 % (45-75) H Lymphocytes % (Manual) 4 % (20-45) L Monocytes % (Manual) 3 % (1-10) Eosinophils % (Manual) 0 % (0-3) Basophils % (Manual) 0 % (0-2) Band Neutrophils 0 % (0-8) Platelet Estimate Adequate Platelet Morphology Normal Red Blood Cell Morphology Normal Arterial Blood pH 7.325 (7.350-7.450) Arterial Blood Partial Pressure CO2 38.4 mmHg (35.0-45.0) Arterial Blood Partial Pressure O2 80.3 mmHg (75.0-100.0) Arterial Blood HCO3 19.6 mmol/L (22.0-26.0) L Arterial Blood Oxygen Saturation 95.2 % (92.0-98.0) Arterial Blood Base Excess -5.9 Eduin Test Positive Microbiology Date/Time Source Procedure Growth Status 06/28/17 23:30 Stool Clostridium difficile Toxin Assay - Final Complete Height (Feet): 5 Height (Inches): 5.00 Weight (Pounds): 125 Medications Current Medications Medications (Trade) Dose Ordered Sig/Michael Route PRN Reason Start Time Stop Time Status Last Admin Dose Admin Acetaminophen (Tylenol) 650 mg Q4H PRN ORAL fever 06/28/17 22:30 07/28/17 22:29 06/29/17 10:20 Albuterol/ Ipratropium (Albuterol/ Ipratropium) 3 ml EVERY 4 HOURS PRN HHN Shortness of Breath 06/28/17 22:30 07/03/17 22:29 Amikacin Sulfate 780 mg/Sodium Chloride 113.12 ml @ 113.12 mls/hr Q36H IV 06/29/17 01:00 07/06/17 00:59 06/29/17 01:03 Ertapenem 1 gm/ Sodium Chloride 55 ml @ 110 mls/hr Q24H IV 06/29/17 00:00 07/04/17 00:00 06/29/17 00:30 Heparin Sodium (Porcine) (Heparin 5000 units/ml) 5,000 units EVERY 12 HOURS SUBQ 06/29/17 09:00 07/29/17 08:59 06/29/17 09:40 Morphine Sulfate (Morphine Sulfate) 2 mg Q3H PRN IVP For Pain 06/29/17 12:30 07/06/17 12:29 06/29/17 13:23 Norepinephrine Bitartrate 4 mg/ Dextrose 254 ml @ 0 mls/hr Q24H IV 06/28/17 22:30 07/28/17 22:29 06/28/17 23:45 Ondansetron HCl (Zofran) 4 mg Q6H PRN IVP Nausea & Vomiting 06/28/17 22:30 07/28/17 22:29 06/29/17 13:22 Pantoprazole (Protonix) 40 mg DAILY IVP 06/29/17 09:00 07/29/17 08:59 06/29/17 09:39 Polyethylene Glycol (Miralax) 17 gm DAILYPRN PRN ORAL Constipation 06/28/17 22:30 07/28/17 22:29 Sodium Chloride 1,000 ml @ 100 mls/hr Q10H IVLG 06/28/17 22:17 07/28/17 22:16 06/29/17 09:39 Vancomycin HCl 1 gm/Sodium Chloride 275 ml @ 183.3 mls/ hr Q24H IVPB 06/30/17 00:00 07/05/17 00:00 Assessment/Plan Assessment/Plan Abx: IV Vanco 06/28- Amikacin 06/29- Ertapenem 06/29- Levaquin x1 06/28 Assessment: Sepsis- 2ry enterocolitis (f/o bacterial vs paraiste, r/o non-infection)-, r/o bacteremia (from GI translocation), r/o IBD -CT abd/p: Diffuse enterocolitis with the wall thickening and abnormal enhancement of multiple loops of small bowel as well as colon. Mild ascites. Hemangioma suspected within the right lobe of the liver. Prominent liver cyst. Atherosclerotic disease. Degenerative changes of the spine. -CXR: No acute findings -u/a neg -C diff neg -Bcx p -Stool cx p Shock, SP - likely combination of dehydration due to diarrhea and sepsis Leukocytosis, resolved -afebrile Lactic acidosis, resolved Syncopal episode- likely due to dehydration IBD s/p sigmoid resection for rectal prolapse s/p cholecystectomy Plan: -D/c IV Vancomycin #2 -Switch IV Amikacin and Ertapenem #1 to Zosyn for enterocolitis -f/u cx (blood, stool) -HIV ab, Giardia, microsporidium, cyclospora/isospora -Monitor CBC/BMP, temperatures -aspiration precautions -ESR, CRP Thank you for this consultation. Will continue to follow along with you. Discussed with RANDI. Hoda Malloy M.D. June 29, 2017 15:37
--- NOTE | 2017-06-29 18:13 | Cardiology Report ---
APPROVED REPORT EKG Measurement Heart [id number] Sinus bradycardia Low voltage QRS Prolonged QT Abnormal ECG
[2017-06-29] MEDS: Piperacillin/Tazobactam 3.375 GM in D5W 110 ML IVPB SCH (21:25)
[2017-06-30] VITALS (17 sets, daily range): BP systolic 109–134; BP diastolic 53–79
[2017-06-30] MEDS ORDERED: Vancomycin 1 GM in NS 275 ML IVPB SCH ×2
[2017-06-30] MEDS ORDERED: Vancomycin 1.5gm/D5W 250ml 250 ML IVPB SCH
[2017-06-30 04:54] LABS: BASOPHILS % (AUTO) 0.9 % (0.0-2.0); EOSINOPHILS % (AUTO) 7.2 % (0.0-3.0); HEMATOCRIT 30.2 % (37.0-47.0); HEMOGLOBIN 9.8 G/DL (12.0-16.0); LYMPHOCYTES % (AUTO) 21.2 % (20.0-45.0); MEAN CORPUSCULAR VOLUME 89 FL (80-99); MONOCYTES % (AUTO) 7.7 % (1.0-10.0); NEUTROPHILS % (AUTO) 62.9 % (45.0-75.0); PLATELET COUNT 164 K/UL (150-450); RED BLOOD COUNT 3.38 M/UL (4.20-5.40); RED CELL DISTRIBUTION WIDTH 12.3 % (11.6-14.8); WHITE BLOOD COUNT 7.7 K/UL (4.8-10.8)
[2017-06-30] MEDS: Piperacillin/Tazobactam 3.375 GM in D5W 110 ML IVPB SCH ×2 (05:01→20:57)
[2017-06-30 05:20] LABS: ALANINE AMINOTRANSFERASE 17 U/L (12-78); ALBUMIN 2.3 G/DL (3.4-5.0); ALKALINE PHOSPHATASE 58 U/L (46-116); ANION GAP 5 mmol/L (5-15); ASPARTATE AMINO TRANSFERASE 22 U/L (15-37); BILIRUBIN,TOTAL 0.3 MG/DL (0.2-1.0); BLOOD UREA NITROGEN 6 mg/dL (7-18); CALCIUM 7.5 MG/DL (8.5-10.1); CARBON DIOXIDE 25 MMOL/L (21-32); CHLORIDE 113 MMOL/L (98-107); CREATININE 0.6 MG/DL (0.55-1.30); PHOSPHORUS 1.9 MG/DL (2.5-4.9); POTASSIUM 3.5 MMOL/L (3.5-5.1); SODIUM 143 MMOL/L (136-145)
[2017-06-30] MEDS: Heparin 5000 units/ml inj SUBQ SCH ×2 (09:00→20:58)
--- NOTE | 2017-06-30 10:33 | Pulmonolgy Critical Care Note ---
Critical Care - Asmt/Plan Problems: (1) Acute encephalopathy (2) Shock (3) Hypomagnesemia (4) Hypophosphatemia (5) Enterocolitis (6) IBD (inflammatory bowel disease) Respiratory: monitor respiratory rate, adjust FIO2, CXR Cardiac: continue to monitor HR/BP Renal: F/U I&O Infectious Disease: check cultures Gastrointestinal: continue feedings/current rate Endocrine: monitor blood sugar Hematologic: monitor H/H, transfuse if hgb<8.5 Neurologic: PRN Ativan, PRN Morphine, keep patient comfortable Affect: PRN ativan Disposition: keep in ICU Time Spent (Minutes): 40 Notes Reviewed: cardio, renal Discussed with: nurses, consultants, foster care case managerclient manager - Objective Last 24 Hour Vital Signs Date Time Temp Pulse Resp B/P (MAP) Pulse Ox O2 Delivery O2 Flow Rate FiO2 06/30/17 07:00 82 16 114/57 99 Room Air 06/30/17 06:00 98.6 06/30/17 06:00 84 17 123/62 98 Room Air 06/30/17 05:01 98.6 06/30/17 05:00 98.5 79 16 128/67 99 Room Air 98.5 06/30/17 04:00 82 15 118/65 98 Room Air 06/30/17 04:00 87 06/30/17 03:00 98.6 83 16 116/64 99 Room Air 98.6 06/30/17 02:00 82 17 122/62 98 Room Air 06/30/17 01:00 81 17 126/63 98 Room Air 06/30/17 00:00 98.4 83 16 131/65 98 Room Air 98.4 06/30/17 00:00 89 06/29/17 23:00 85 17 128/68 99 Room Air 06/29/17 22:00 80 16 129/61 99 Room Air 06/29/17 21:00 83 17 130/59 99 Room Air 06/29/17 20:00 98.3 85 16 128/57 99 Room Air 98.3 06/29/17 20:00 83 06/29/17 19:41 84 15 Room Air 21 06/29/17 19:00 80 16 128/50 99 Room Air 06/29/17 18:00 83 17 136/59 100 Room Air 06/29/17 17:51 98.5 06/29/17 16:00 98.6 80 18 130/59 99 Room Air 98.6 06/29/17 16:00 85 06/29/17 14:05 97.8 06/29/17 14:00 80 21 130/59 100 Room Air 06/29/17 13:23 97.8 06/29/17 13:00 80 17 98/54 100 Room Air 06/29/17 12:00 83 06/29/17 12:00 98.6 86 18 124/61 99 Room Air 98.6 06/29/17 11:00 82 21 110/52 100 Room Air Status: awake Condition: critical HEENT: atraumatic Lungs: clear Heart: HR/BP stable Abdomen: soft Extremities: no C/C/E Decubiti: location Micro: Microbiology Date/Time Source Procedure Growth Status 06/28/17 18:20 Blood Blood Culture - Preliminary NO GROWTH AFTER 24 HOURS Resulted 06/28/17 18:15 Blood Blood Culture - Preliminary NO GROWTH AFTER 24 HOURS Resulted 06/28/17 23:30 Stool Clostridium difficile Toxin Assay - Final Complete Accucheck: 102 Critical Care - Subjective ROS Limited/Unobtainable: No ICU Day: 2 Intubation Day: f Interval Events: off levophed FI02: 21 Fluids: NS 100 cc/hour I&O: Intake and Output 06/29/17 06/30/17 19:00 07:00 Intake Total 1200 ml 1312.5 ml Balance 1200 ml 1312.5 ml Intake IV Total 1200 ml 1312.5 ml # Voids 4 8 # Bowel Movements 1 Labs: Laboratory Tests Test 06/30/17 04:20 White Blood Count 7.7 K/UL (4.8-10.8) # Red Blood Count 3.38 M/UL (4.20-5.40) L Hemoglobin 9.8 G/DL (12.0-16.0) L Hematocrit 30.2 % (37.0-47.0) L Mean Corpuscular Volume 89 FL (80-99) Mean Corpuscular Hemoglobin 29.0 PG (27.0-31.0) Mean Corpuscular Hemoglobin Concent 32.4 G/DL (32.0-36.0) Red Cell Distribution Width 12.3 % (11.6-14.8) Platelet Count 164 K/UL (150-450) Mean Platelet Volume 6.0 FL (6.5-10.1) L Neutrophils (%) (Auto) 62.9 % (45.0-75.0) Lymphocytes (%) (Auto) 21.2 % (20.0-45.0) Monocytes (%) (Auto) 7.7 % (1.0-10.0) Eosinophils (%) (Auto) 7.2 % (0.0-3.0) H Basophils (%) (Auto) 0.9 % (0.0-2.0) Erythrocyte Sedimentation Rate 8 MM/HR (0-30) Sodium Level 143 MMOL/L (136-145) Potassium Level 3.5 MMOL/L (3.5-5.1) Chloride Level 113 MMOL/L (98-107) H Carbon Dioxide Level 25 MMOL/L (21-32) Anion Gap 5 mmol/L (5-15) Blood Urea Nitrogen 6 mg/dL (7-18) L Creatinine 0.6 MG/DL (0.55-1.30) Estimat Glomerular Filtration Rate mL/min (>60) Glucose Level 97 MG/DL (74-106) Lactic Acid Level 0.40 mmol/L (0.66-2.22) L Calcium Level 7.5 MG/DL (8.5-10.1) L Phosphorus Level 1.9 MG/DL (2.5-4.9) L Magnesium Level 1.6 MG/DL (1.8-2.4) L Total Bilirubin 0.3 MG/DL (0.2-1.0) Aspartate Amino Transf (AST/SGOT) 22 U/L (15-37) Alanine Aminotransferase (ALT/SGPT) 17 U/L (12-78) Alkaline Phosphatase 58 U/L (46-116) C-Reactive Protein, Quantitative 2.7 mg/dL (0.00-0.90) H Total Protein 4.6 G/DL (6.4-8.2) L Albumin 2.3 G/DL (3.4-5.0) L Globulin 2.3 g/dL Albumin/Globulin Ratio 1.0 (1.0-2.7) HIV (1&2) Antibody Rapid Negative (NEGATIVE) Orville Lennon MD June 30, 2017 10:33
--- NOTE | 2017-06-30 10:58 | Cardiology Report ---
APPROVED REPORT EXAM: Two-dimensional and M-mode echocardiogram with Doppler and color Doppler. INDICATION LV FUNCTION M-Mode DIMENSIONS IVSd1.4 (0.7-1.1cm)Left Atrium (MM)3.5 (1.6-4.0cm) LVDd3.5 (3.5-5.6cm)Aortic Root2.6 (2.0-3.7cm) PWd1.0 (0.7-1.1cm)Aortic Cusp Exc.1.7 (1.5-2.0cm) IVSs1.7 cm LVDs2.1 (2.5-4.0cm) PWs1.6 cm Technically difficult study due to poor acoustical windows. Normal left ventricular chamber size, systolic function and wall motion. Left ventricular ejection fraction estimated to be 65 %. No evidence of left ventricular hypertrophy. Small pericardial effusion along with RV wall present . All other cardiac chamber sizes are within normal limits. Focal aortic valve sclerosis with adequate cusp excursion. Mildly Thickened mitral valve leaflets with normal excursion. Mildly Mitral annulus and aortic root calcification. Normal pulmonic valve structure. Normal tricuspid valve structure. IVC at normal size with physiologic collapse. A color flow and spectral Doppler study was performed and revealed: No aortic regurgitation. Trace mitral regurgitation. Mitral diastolic velocities suggest reduced left ventricular relaxation c/w mild LV diastolic dysfunction (Grade I ). Trace tricuspid regurgitation. Tricuspid systolic velocities suggests peak right ventricular systolic pressure of 37 mmHg, consistent with mild pulmonary hypertension. No Pulmonic regurgitation present.
[2017-06-30] MEDS ORDERED: Norco 5mg/325mg tab ORAL PRN ×3 (11:00→17:00)
[2017-06-30 11:04] LABS: APPEARANCE,URINE CLEAR; BILIRUBIN, URINE NEGATIVE (NEGATIVE); COLOR,URINE PALE YELLOW; GLUCOSE, URINE (UA) NEGATIVE (NEGATIVE); KETONES,URINE NEGATIVE (NEGATIVE); LEUKOCYTE ESTERASE ,URINE NEGATIVE (NEGATIVE); NITRITE,URINE NEGATIVE (NEGATIVE); PH,URINE 5 (4.5-8.0); PROTEIN,URINE NEGATIVE (NEGATIVE); UROBILINOGEN,URINE NORMAL MG/DL (0.0-1.0)
[2017-06-30] MEDS ORDERED: Morphine Sulfate 4mg/ml Inj IVP PRN ×3 (11:30→14:30)
[2017-06-30] MEDS ORDERED: Potassium Phosphate 30 MM in NS 275 ML IVPB ONE (11:45)
[2017-06-30] MEDS ORDERED: Sodium Phosphate 30 MM in NS 275 ML IV ONE ×2 (13:00→13:15)
[2017-06-30] MEDS ORDERED: Piperacillin/Tazobactam 3.375 GM in D5W 110 ML IVPB SCH (14:00)
[2017-06-30] MEDS ORDERED: Miralax 17gm pkt ORAL PRN ×2 (15:00→22:30)
[2017-06-30] MEDS ORDERED: Albuterol/Ipratropium 3ml neb HHN PRN ×2 (15:00→17:00)
--- NOTE | 2017-06-30 15:19 | GI Progress Note ---
Assessment/Plan Problems: (1) Enterocolitis ICD Codes: K52.9 - Noninfective gastroenteritis and colitis, unspecified SNOMED: 43063331 (2) IBD (inflammatory bowel disease) ICD Codes: K52.9 - Noninfective gastroenteritis and colitis, unspecified SNOMED: 64959633 Status: progressing Status Narrative Discussed with Dr. Julio. Assessment/Plan recent dietary change CT reviewed >> Diffuse enterocolitis. hx of sigmoid resection for rectal prolapse hx of cholecystectomy recent colonoscopy x 2 years >> unremarkable rectal bleeding at times, most likely hemorrhoidal stable H&H cdiff negative symptomatic treatment adv to soft ADA diet fu stool studies, O&P pain mgmt ppi electrolyte correction abx fu labs The patient was seen and examined at bedside and all new and available data was reviewed in the patients chart. I agree with the above findings, impression and plan. (Patient seen earlier today. Signature stamp does not reflect patient encounter time.). - Ryan Julio MD Subjective Subjective abdominal pain improving Objective Last 24 Hour Vital Signs Date Time Temp Pulse Resp B/P (MAP) Pulse Ox O2 Delivery O2 Flow Rate FiO2 06/30/17 14:30 98.4 78 15 131/74 97 Room Air 98.4 06/30/17 13:00 81 18 134/62 100 Room Air 06/30/17 12:54 98.2 06/30/17 12:00 90 06/30/17 12:00 98.2 77 18 126/79 99 Room Air 98.2 06/30/17 11:00 77 17 116/74 99 Room Air 06/30/17 10:00 78 17 115/59 99 Room Air 06/30/17 09:00 76 17 109/53 99 Room Air 06/30/17 08:00 85 06/30/17 08:00 98.5 81 19 109/57 99 Room Air 98.5 06/30/17 07:00 82 16 114/57 99 Room Air 06/30/17 06:00 98.6 06/30/17 06:00 84 17 123/62 98 Room Air 06/30/17 05:01 98.6 06/30/17 05:00 98.5 79 16 128/67 99 Room Air 98.5 06/30/17 04:00 82 15 118/65 98 Room Air 06/30/17 04:00 87 06/30/17 03:00 98.6 83 16 116/64 99 Room Air 98.6 06/30/17 02:00 82 17 122/62 98 Room Air 06/30/17 01:00 81 17 126/63 98 Room Air 06/30/17 00:00 98.4 83 16 131/65 98 Room Air 98.4 06/30/17 00:00 89 06/29/17 23:00 85 17 128/68 99 Room Air 06/29/17 22:00 80 16 129/61 99 Room Air 06/29/17 21:00 83 17 130/59 99 Room Air 06/29/17 20:00 98.3 85 16 128/57 99 Room Air 98.3 06/29/17 20:00 83 06/29/17 19:41 84 15 Room Air 21 06/29/17 19:00 80 16 128/50 99 Room Air 06/29/17 18:00 83 17 136/59 100 Room Air 06/29/17 17:51 98.5 06/29/17 16:00 98.6 80 18 130/59 99 Room Air 98.6 06/29/17 16:00 85 Intake and Output 06/29/17 06/30/17 19:00 07:00 Intake Total 1200 ml 1312.5 ml Balance 1200 ml 1312.5 ml IV Total 1200 ml 1312.5 ml # Voids 4 8 # Bowel Movements 1 Laboratory Tests Test 06/30/17 04:20 06/30/17 08:00 White Blood Count 7.7 K/UL (4.8-10.8) # Red Blood Count 3.38 M/UL (4.20-5.40) L Hemoglobin 9.8 G/DL (12.0-16.0) L Hematocrit 30.2 % (37.0-47.0) L Mean Corpuscular Volume 89 FL (80-99) Mean Corpuscular Hemoglobin 29.0 PG (27.0-31.0) Mean Corpuscular Hemoglobin Concent 32.4 G/DL (32.0-36.0) Red Cell Distribution Width 12.3 % (11.6-14.8) Platelet Count 164 K/UL (150-450) Mean Platelet Volume 6.0 FL (6.5-10.1) L Neutrophils (%) (Auto) 62.9 % (45.0-75.0) Lymphocytes (%) (Auto) 21.2 % (20.0-45.0) Monocytes (%) (Auto) 7.7 % (1.0-10.0) Eosinophils (%) (Auto) 7.2 % (0.0-3.0) H Basophils (%) (Auto) 0.9 % (0.0-2.0) Erythrocyte Sedimentation Rate 8 MM/HR (0-30) Sodium Level 143 MMOL/L (136-145) Potassium Level 3.5 MMOL/L (3.5-5.1) Chloride Level 113 MMOL/L (98-107) H Carbon Dioxide Level 25 MMOL/L (21-32) Anion Gap 5 mmol/L (5-15) Blood Urea Nitrogen 6 mg/dL (7-18) L Creatinine 0.6 MG/DL (0.55-1.30) Estimat Glomerular Filtration Rate mL/min (>60) Glucose Level 97 MG/DL (74-106) Lactic Acid Level 0.40 mmol/L (0.66-2.22) L Calcium Level 7.5 MG/DL (8.5-10.1) L Phosphorus Level 1.9 MG/DL (2.5-4.9) L Magnesium Level 1.6 MG/DL (1.8-2.4) L Total Bilirubin 0.3 MG/DL (0.2-1.0) Aspartate Amino Transf (AST/SGOT) 22 U/L (15-37) Alanine Aminotransferase (ALT/SGPT) 17 U/L (12-78) Alkaline Phosphatase 58 U/L (46-116) C-Reactive Protein, Quantitative 2.7 mg/dL (0.00-0.90) H Total Protein 4.6 G/DL (6.4-8.2) L Albumin 2.3 G/DL (3.4-5.0) L Globulin 2.3 g/dL Albumin/Globulin Ratio 1.0 (1.0-2.7) HIV (1&2) Antibody Rapid Negative (NEGATIVE) Urine Color Pale yellow Urine Appearance Clear Urine pH 5 (4.5-8.0) Urine Specific [place] 1.010 (1.005-1.035) Urine Protein Negative (NEGATIVE) Urine Glucose (UA) Negative (NEGATIVE) Urine Ketones Negative (NEGATIVE) Urine Occult Blood 2+ (NEGATIVE) H Urine Nitrite Negative (NEGATIVE) Urine Bilirubin Negative (NEGATIVE) Urine Urobilinogen Normal MG/DL (0.0-1.0) Urine Leukocyte Esterase Negative (NEGATIVE) Urine RBC 2-4 /HPF (0 - 2) H Urine WBC 0-2 /HPF (0 - 2) Urine Squamous Epithelial Cells Few /LPF (NONE/OCC) Urine Bacteria Occasional /HPF (NONE) Height (Feet): 5 Height (Inches): 5.00 Weight (Pounds): 125 General Appearance: WD/WN, no apparent distress, alert Cardiovascular: normal rate Respiratory/Chest: normal breath sounds, no respiratory distress Abdominal Exam: normal bowel sounds, non tender, soft Extremities: normal range of motion, non-tender Dai Doherty NP June 30, 2017 15:19
--- NOTE | 2017-06-30 18:51 | Infectious Diseases Prog Note ---
Assessment/Plan Assessment/Plan Abx: IV Vanco 06/28- Amikacin 06/29- Ertapenem 06/29- Levaquin x1 06/28 Assessment: Sepsis- 2ry enterocolitis (f/o bacterial vs paraiste, r/o non-infection)-, r/o bacteremia (from GI translocation), r/o IBD -CT abd/p: Diffuse enterocolitis with the wall thickening and abnormal enhancement of multiple loops of small bowel as well as colon. Mild ascites. Hemangioma suspected within the right lobe of the liver. Prominent liver cyst. Atherosclerotic disease. Degenerative changes of the spine. -CXR: No acute findings -u/a neg -C diff neg -Bcx NTD -Stool cx p -HIV ab neg -ESR 8, CRP 2.7 Shock, SP - likely combination of dehydration due to diarrhea and sepsis Leukocytosis, resolved -afebrile Lactic acidosis, resolved Syncopal episode- likely due to dehydration -echo EF 65% -CTA chest: No acute findings. No evidence of pulmonary embolus. Heterogeneous thyroid gland. Consider further evaluation with ultrasound hx of IBS s/p sigmoid resection for rectal prolapse s/p cholecystectomy Plan: -Continue Zosyn #2 for enterocolitis -06/29 SP IV Vancomycin #2, Amikacin and Ertapenem #1 -f/u cx (blood, stool) -f/u Giardia, microsporidium, cyclospora/isospora -Monitor CBC/BMP, temperatures -aspiration precautions Thank you for this consultation. Will continue to follow along with you. Discussed with RN. Subjective Allergies: Coded Allergies: CODEINE (Verified Allergy, Unknown, Itching, 06/28/17) NAPROXEN (Verified Allergy, Unknown, 06/28/17) Subjective afebrile transferred to the floors Bcx NTD Objective Vital Signs Last 24 Hour Vital Signs Date Time Temp Pulse Resp B/P (MAP) Pulse Ox O2 Delivery O2 Flow Rate FiO2 06/30/17 16:00 98.4 69 17 115/71 94 Room Air 98.4 06/30/17 14:30 98.4 78 15 131/74 97 Room Air 98.4 06/30/17 13:00 81 18 134/62 100 Room Air 06/30/17 12:54 98.2 06/30/17 12:00 90 06/30/17 12:00 98.2 77 18 126/79 99 Room Air 98.2 06/30/17 11:00 77 17 116/74 99 Room Air 06/30/17 10:00 78 17 115/59 99 Room Air 06/30/17 09:00 76 17 109/53 99 Room Air 06/30/17 08:00 85 06/30/17 08:00 98.5 81 19 109/57 99 Room Air 98.5 06/30/17 07:00 82 16 114/57 99 Room Air 06/30/17 06:00 98.6 06/30/17 06:00 84 17 123/62 98 Room Air 06/30/17 05:01 98.6 06/30/17 05:00 98.5 79 16 128/67 99 Room Air 98.5 06/30/17 04:00 82 15 118/65 98 Room Air 06/30/17 04:00 87 06/30/17 03:00 98.6 83 16 116/64 99 Room Air 98.6 06/30/17 02:00 82 17 122/62 98 Room Air 06/30/17 01:00 81 17 126/63 98 Room Air 06/30/17 00:00 98.4 83 16 131/65 98 Room Air 98.4 06/30/17 00:00 89 06/29/17 23:00 85 17 128/68 99 Room Air 06/29/17 22:00 80 16 129/61 99 Room Air 06/29/17 21:00 83 17 130/59 99 Room Air 06/29/17 20:00 98.3 85 16 128/57 99 Room Air 98.3 06/29/17 20:00 83 06/29/17 19:41 84 15 Room Air 21 06/29/17 19:00 80 16 128/50 99 Room Air Height (Feet): 5 Height (Inches): 5.00 Weight (Pounds): 125 Objective General Appearance: cachetic Lines, tubes and drains: peripheral HEENT: normocephalic, atraumatic Neck: non-tender, normal alignment Respiratory/Chest: chest wall non-tender, lungs clear Cardiovascular/Chest: normal peripheral pulses, normal rate Abdomen: normal bowel sounds, non tender Extremities: normal range of motion Skin Exam: normal pigmentation Microbiology Date/Time Source Procedure Growth Status 06/28/17 18:20 Blood Blood Culture - Preliminary NO GROWTH AFTER 24 HOURS Resulted 06/28/17 18:15 Blood Blood Culture - Preliminary NO GROWTH AFTER 24 HOURS Resulted 06/28/17 23:30 Stool Clostridium difficile Toxin Assay - Final Complete Laboratory Tests Test 06/30/17 04:20 06/30/17 08:00 White Blood Count 7.7 K/UL (4.8-10.8) # Red Blood Count 3.38 M/UL (4.20-5.40) L Hemoglobin 9.8 G/DL (12.0-16.0) L Hematocrit 30.2 % (37.0-47.0) L Mean Corpuscular Volume 89 FL (80-99) Mean Corpuscular Hemoglobin 29.0 PG (27.0-31.0) Mean Corpuscular Hemoglobin Concent 32.4 G/DL (32.0-36.0) Red Cell Distribution Width 12.3 % (11.6-14.8) Platelet Count 164 K/UL (150-450) Mean Platelet Volume 6.0 FL (6.5-10.1) L Neutrophils (%) (Auto) 62.9 % (45.0-75.0) Lymphocytes (%) (Auto) 21.2 % (20.0-45.0) Monocytes (%) (Auto) 7.7 % (1.0-10.0) Eosinophils (%) (Auto) 7.2 % (0.0-3.0) H Basophils (%) (Auto) 0.9 % (0.0-2.0) Erythrocyte Sedimentation Rate 8 MM/HR (0-30) Sodium Level 143 MMOL/L (136-145) Potassium Level 3.5 MMOL/L (3.5-5.1) Chloride Level 113 MMOL/L (98-107) H Carbon Dioxide Level 25 MMOL/L (21-32) Anion Gap 5 mmol/L (5-15) Blood Urea Nitrogen 6 mg/dL (7-18) L Creatinine 0.6 MG/DL (0.55-1.30) Estimat Glomerular Filtration Rate mL/min (>60) Glucose Level 97 MG/DL (74-106) Lactic Acid Level 0.40 mmol/L (0.66-2.22) L Calcium Level 7.5 MG/DL (8.5-10.1) L Phosphorus Level 1.9 MG/DL (2.5-4.9) L Magnesium Level 1.6 MG/DL (1.8-2.4) L Total Bilirubin 0.3 MG/DL (0.2-1.0) Aspartate Amino Transf (AST/SGOT) 22 U/L (15-37) Alanine Aminotransferase (ALT/SGPT) 17 U/L (12-78) Alkaline Phosphatase 58 U/L (46-116) C-Reactive Protein, Quantitative 2.7 mg/dL (0.00-0.90) H Total Protein 4.6 G/DL (6.4-8.2) L Albumin 2.3 G/DL (3.4-5.0) L Globulin 2.3 g/dL Albumin/Globulin Ratio 1.0 (1.0-2.7) HIV (1&2) Antibody Rapid Negative (NEGATIVE) Urine Color Pale yellow Urine Appearance Clear Urine pH 5 (4.5-8.0) Urine Specific [place] 1.010 (1.005-1.035) Urine Protein Negative (NEGATIVE) Urine Glucose (UA) Negative (NEGATIVE) Urine Ketones Negative (NEGATIVE) Urine Occult Blood 2+ (NEGATIVE) H Urine Nitrite Negative (NEGATIVE) Urine Bilirubin Negative (NEGATIVE) Urine Urobilinogen Normal MG/DL (0.0-1.0) Urine Leukocyte Esterase Negative (NEGATIVE) Urine RBC 2-4 /HPF (0 - 2) H Urine WBC 0-2 /HPF (0 - 2) Urine Squamous Epithelial Cells Few /LPF (NONE/OCC) Urine Bacteria Occasional /HPF (NONE) Current Medications Medications (Trade) Dose Ordered Sig/Michael Route PRN Reason Start Time Stop Time Status Last Admin Dose Admin Acetaminophen (Tylenol) 650 mg Q4H PRN ORAL fever 06/30/17 14:30 07/28/17 22:29 Acetaminophen/ Hydrocodone Bitart ([place] 5/325) 1 tab Q6H PRN ORAL Moderate Pain (Pain Scale 4-6) 06/30/17 15:00 07/07/17 14:59 Albuterol/ Ipratropium (Albuterol/ Ipratropium) 3 ml Q4H PRN HHN Shortness of Breath 06/30/17 15:00 07/05/17 14:59 Heparin Sodium (Porcine) (Heparin 5000 units/ml) 5,000 units EVERY 12 HOURS SUBQ 06/30/17 21:00 07/29/17 08:59 Morphine Sulfate (Morphine Sulfate) 2 mg Q3H PRN IVP Severe Pain (Pain Scale 7-10) 06/30/17 14:30 07/07/17 11:29 Ondansetron HCl (Zofran) 4 mg Q6H PRN IVP Nausea & Vomiting 06/30/17 15:00 07/28/17 14:59 06/30/17 15:36 Pantoprazole (Protonix) 40 mg DAILY IVP 07/01/17 09:00 07/29/17 08:59 Piperacillin Sod/ Tazobactam Sod 3.375 gm/Dextrose 110 ml @ 27.5 mls/hr EVERY 8 HOURS IVPB 06/30/17 22:00 07/05/17 21:59 Polyethylene Glycol (Miralax) 17 gm DAILYPRN PRN ORAL Constipation 06/30/17 15:00 07/28/17 14:59 Sodium Chloride 1,000 ml @ 100 mls/hr Q10H IVLG 06/30/17 15:00 07/28/17 14:59 06/30/17 15:36 Sodium Phosphate 30 mm/Sodium Chloride 285 ml @ 47.5 mls/hr ONCE ONCE IV 07/01/17 16:00 07/01/17 21:59 Hoda Malloy M.D. June 30, 2017 18:51
[2017-06-30] MEDS: Norco 5mg/325mg tab ORAL PRN (19:00)
[2017-06-30] MEDS ORDERED: Heparin 5000 units/ml inj SUBQ SCH (21:00)
[2017-07-01] VITALS: BP 117/63
[2017-07-01] MEDS: Norco 5mg/325mg tab ORAL PRN (02:00)
[2017-07-01 04:00] VITALS: BP 124/63
[2017-07-01] MEDS: Piperacillin/Tazobactam 3.375 GM in D5W 110 ML IVPB SCH ×3 (05:36→20:44)
[2017-07-01 08:00] VITALS: BP 140/67
[2017-07-01] MEDS ORDERED: Pantoprazole Inj IVP SCH ×2 (09:00)
[2017-07-01 09:14] LABS: BASOPHILS % (AUTO) 1.5 % (0.0-2.0); EOSINOPHILS % (AUTO) 7.4 % (0.0-3.0); HEMATOCRIT 32.8 % (37.0-47.0); LYMPHOCYTES % (AUTO) 13.7 % (20.0-45.0); MEAN CORPUSCULAR VOLUME 89 FL (80-99); MONOCYTES % (AUTO) 9.7 % (1.0-10.0); NEUTROPHILS % (AUTO) 67.7 % (45.0-75.0); PLATELET COUNT 179 K/UL (150-450); RED BLOOD COUNT 3.69 M/UL (4.20-5.40); RED CELL DISTRIBUTION WIDTH 12.2 % (11.6-14.8); WHITE BLOOD COUNT 6.5 K/UL (4.8-10.8)
[2017-07-01 09:45] LABS: ALANINE AMINOTRANSFERASE 24 U/L (12-78); ALBUMIN/GLOBULIN RATIO 1.1 (1.0-2.7); ALKALINE PHOSPHATASE 61 U/L (46-116); ANION GAP 5 mmol/L (5-15); ASPARTATE AMINO TRANSFERASE 30 U/L (15-37); BILIRUBIN,TOTAL 0.4 MG/DL (0.2-1.0); BLOOD UREA NITROGEN 4 mg/dL (7-18); CARBON DIOXIDE 29 MMOL/L (21-32); CHLORIDE 109 MMOL/L (98-107); CREATININE 0.6 MG/DL (0.55-1.30); PHOSPHORUS 2.5 MG/DL (2.5-4.9); POTASSIUM 3.4 MMOL/L (3.5-5.1); SODIUM 143 MMOL/L (136-145)
[2017-07-01] MEDS: Heparin 5000 units/ml inj SUBQ SCH ×2 (10:44→20:45)
--- NOTE | 2017-07-01 10:58 | Infectious Diseases Prog Note ---
Assessment/Plan Assessment/Plan Assessment: Sepsis- 2ry enterocolitis (f/o bacterial vs paraiste, r/o non-infection)-, r/o bacteremia (from GI translocation), r/o IBD -CT abd/p: Diffuse enterocolitis with the wall thickening and abnormal enhancement of multiple loops of small bowel as well as colon. Mild ascites. Hemangioma suspected within the right lobe of the liver. Prominent liver cyst. Atherosclerotic disease. Degenerative changes of the spine. -CXR: No acute findings -u/a neg -C diff neg -Bcx NTD -Stool cx : Neg -HIV ab neg -ESR 8, CRP 2.7 Shock, SP - likely combination of dehydration due to diarrhea and sepsis Leukocytosis, resolved -afebrile Lactic acidosis, resolved Syncopal episode- likely due to dehydration -echo EF 65% -CTA chest: No acute findings. No evidence of pulmonary embolus. Heterogeneous thyroid gland. Consider further evaluation with ultrasound hx of IBS s/p sigmoid resection for rectal prolapse s/p cholecystectomy Plan: -Continue Zosyn # 3 / 5 for enterocolitis -06/29 SP IV Vancomycin #2, Amikacin and Ertapenem #1 -f/u cx (bloodl) -f/u Giardia, microsporidium, cyclospora/isospora -Monitor CBC/BMP, temperatures -aspiration precautions Subjective Constitutional: Denies: no symptoms, fever, chills, fatigue, anorexia, drenching sweats, other Allergies: Coded Allergies: CODEINE (Verified Allergy, Unknown, Itching, 06/28/17) NAPROXEN (Verified Allergy, Unknown, 06/28/17) Subjective abd pain improved 3 BM to days Objective Vital Signs Last 24 Hour Vital Signs Date Time Temp Pulse Resp B/P (MAP) Pulse Ox O2 Delivery O2 Flow Rate FiO2 07/01/17 08:00 98.6 79 20 140/67 96 Room Air 98.6 07/01/17 08:00 80 18 Room Air 21 07/01/17 04:00 98.1 72 18 124/63 92 Room Air 98.1 07/01/17 00:00 97.8 70 18 117/63 92 Room Air 97.8 06/30/17 20:00 98.2 78 19 131/69 92 Room Air 98.2 06/30/17 19:54 79 16 Room Air 21 06/30/17 16:00 98.4 69 17 115/71 94 Room Air 98.4 06/30/17 14:30 98.4 78 15 131/74 97 Room Air 98.4 06/30/17 13:00 81 18 134/62 100 Room Air 06/30/17 12:54 98.2 06/30/17 12:00 90 06/30/17 12:00 98.2 77 18 126/79 99 Room Air 98.2 06/30/17 11:00 77 17 116/74 99 Room Air Height (Feet): 5 Height (Inches): 5.00 Weight (Pounds): 138 HEENT: mucous membranes moist Respiratory/Chest: normal breath sounds Cardiovascular: regular rhythm Abdomen: no organomegaly Microbiology Date/Time Source Procedure Growth Status 06/28/17 18:20 Blood Blood Culture - Preliminary NO GROWTH AFTER 48 HOURS Resulted 06/28/17 18:15 Blood Blood Culture - Preliminary NO GROWTH AFTER 48 HOURS Resulted 06/28/17 23:30 Stool Clostridium difficile Toxin Assay - Final Complete Laboratory Tests Test 07/01/17 07:25 White Blood Count 6.5 K/UL (4.8-10.8) Red Blood Count 3.69 M/UL (4.20-5.40) L Hemoglobin 11.0 G/DL (12.0-16.0) L Hematocrit 32.8 % (37.0-47.0) L Mean Corpuscular Volume 89 FL (80-99) Mean Corpuscular Hemoglobin 29.7 PG (27.0-31.0) Mean Corpuscular Hemoglobin Concent 33.4 G/DL (32.0-36.0) Red Cell Distribution Width 12.2 % (11.6-14.8) Platelet Count 179 K/UL (150-450) Mean Platelet Volume 6.7 FL (6.5-10.1) Neutrophils (%) (Auto) 67.7 % (45.0-75.0) Lymphocytes (%) (Auto) 13.7 % (20.0-45.0) L Monocytes (%) (Auto) 9.7 % (1.0-10.0) Eosinophils (%) (Auto) 7.4 % (0.0-3.0) H Basophils (%) (Auto) 1.5 % (0.0-2.0) Sodium Level 143 MMOL/L (136-145) Potassium Level 3.4 MMOL/L (3.5-5.1) L Chloride Level 109 MMOL/L (98-107) H Carbon Dioxide Level 29 MMOL/L (21-32) Anion Gap 5 mmol/L (5-15) Blood Urea Nitrogen 4 mg/dL (7-18) L Creatinine 0.6 MG/DL (0.55-1.30) Estimat Glomerular Filtration Rate mL/min (>60) Glucose Level 91 MG/DL (74-106) Calcium Level 8.0 MG/DL (8.5-10.1) L Phosphorus Level 2.5 MG/DL (2.5-4.9) Magnesium Level 2.0 MG/DL (1.8-2.4) Total Bilirubin 0.4 MG/DL (0.2-1.0) Aspartate Amino Transf (AST/SGOT) 30 U/L (15-37) Alanine Aminotransferase (ALT/SGPT) 24 U/L (12-78) Alkaline Phosphatase 61 U/L (46-116) Total Protein 5.7 G/DL (6.4-8.2) L Albumin 3.0 G/DL (3.4-5.0) L Globulin 2.7 g/dL Albumin/Globulin Ratio 1.1 (1.0-2.7) Current Medications Medications (Trade) Dose Ordered Sig/Michael Route PRN Reason Start Time Stop Time Status Last Admin Dose Admin Acetaminophen (Tylenol) 650 mg Q4H PRN ORAL fever 06/30/17 14:30 07/28/17 22:29 Acetaminophen/ Hydrocodone Bitart ([place] 5/325) 1 tab Q6H PRN ORAL Moderate Pain (Pain Scale 4-6) 06/30/17 15:00 07/07/17 14:59 07/01/17 02:00 Albuterol/ Ipratropium (Albuterol/ Ipratropium) 3 ml Q4H PRN HHN Shortness of Breath 06/30/17 15:00 07/05/17 14:59 Heparin Sodium (Porcine) (Heparin 5000 units/ml) 5,000 units EVERY 12 HOURS SUBQ 06/30/17 21:00 07/29/17 08:59 06/30/17 20:58 Morphine Sulfate (Morphine Sulfate) 2 mg Q3H PRN IVP Severe Pain (Pain Scale 7-10) 06/30/17 14:30 07/07/17 11:29 Ondansetron HCl (Zofran) 4 mg Q6H PRN IVP Nausea & Vomiting 06/30/17 15:00 07/28/17 14:59 07/01/17 04:39 Pantoprazole (Protonix) 40 mg DAILY IVP 07/01/17 09:00 07/29/17 08:59 07/01/17 09:04 Piperacillin Sod/ Tazobactam Sod 3.375 gm/Dextrose 110 ml @ 27.5 mls/hr EVERY 8 HOURS IVPB 06/30/17 22:00 07/05/17 21:59 07/01/17 05:36 Polyethylene Glycol (Miralax) 17 gm DAILYPRN PRN ORAL Constipation 06/30/17 15:00 07/28/17 14:59 Sodium Chloride 1,000 ml @ 100 mls/hr Q10H IVLG 06/30/17 15:00 07/28/17 14:59 07/01/17 02:02 Sodium Phosphate 30 mm/Sodium Chloride 285 ml @ 47.5 mls/hr ONCE ONCE IV 07/01/17 16:00 07/01/17 21:59 Simone Collins MD July 01, 2017 10:58
[2017-07-01 12:00] VITALS: BP 136/72
[2017-07-01 16:00] VITALS: BP 132/70
[2017-07-01] MEDS ORDERED: Sodium Phosphate 30 MM in NS 275 ML IV ONE (16:00)
[2017-07-01] MEDS: Lactobacillus-GG tablet ORAL SCH ×2 (16:20→20:44)
--- NOTE | 2017-07-01 18:13 | General Progress Note ---
Assessment/Plan Assessment/Plan Assessment (1) Enterocolitis ICD Codes: K52.9 - Noninfective gastroenteritis and colitis, unspecified SNOMED: 03864438 (2) IBD (inflammatory bowel disease) ICD Codes: K52.9 - Noninfective gastroenteritis and colitis, unspecified SNOMED: 28241301 Status: progressing Assessment/Plan recent dietary change CT reviewed >> Diffuse enterocolitis. hx of sigmoid resection for rectal prolapse hx of cholecystectomy recent colonoscopy x 2 years >> unremarkable rectal bleeding at times, most likely hemorrhoidal stable H&H cdiff negative OB (+) Recommendations symptomatic treatment --> Fiber and probiotics outpatient EGD/Colon adv to soft ADA diet fu stool studies, O&P pain mgmt ppi electrolyte correction abx fu labs Subjective Allergies: Coded Allergies: CODEINE (Verified Allergy, Unknown, Itching, 06/28/17) NAPROXEN (Verified Allergy, Unknown, 06/28/17) Subjective c/o some nausea thinks it was from [place] (+) diarrhea CT noted --> enterocolitis Objective Last 24 Hour Vital Signs Date Time Temp Pulse Resp B/P (MAP) Pulse Ox O2 Delivery O2 Flow Rate FiO2 07/01/17 12:00 98.7 72 20 136/72 99 Room Air 98.7 07/01/17 08:00 98.6 79 20 140/67 96 Room Air 98.6 07/01/17 08:00 80 18 Room Air 21 07/01/17 04:00 98.1 72 18 124/63 92 Room Air 98.1 07/01/17 00:00 97.8 70 18 117/63 92 Room Air 97.8 06/30/17 20:00 98.2 78 19 131/69 92 Room Air 98.2 06/30/17 19:54 79 16 Room Air 21 Intake and Output 06/30/17 07/01/17 19:00 07:00 Intake Total 1302.5 ml 1037.5 ml Balance 1302.5 ml 1037.5 ml Intake Oral 220 ml IV Total 1082.5 ml 1037.5 ml # Voids 5 # Bowel Movements 3 Laboratory Tests 07/01/17 07:25: White Blood Count 6.5, Red Blood Count 3.69L, Hemoglobin 11.0L, Hematocrit 32.8L , Mean Corpuscular Volume 89, Mean Corpuscular Hemoglobin 29.7, Mean Corpuscular Hemoglobin Concent 33.4, Red Cell Distribution Width 12.2, Platelet Count 179, Mean Platelet Volume 6.7, Neutrophils (%) (Auto) 67.7, Lymphocytes (% ) (Auto) 13.7L, Monocytes (%) (Auto) 9.7, Eosinophils (%) (Auto) 7.4H, Basophils (%) (Auto) 1.5, Sodium Level 143, Potassium Level 3.4L, Chloride Level 109H, Carbon Dioxide Level 29, Anion Gap 5, Blood Urea Nitrogen 4L, Creatinine 0.6, Estimat Glomerular Filtration Rate , Glucose Level 91, Calcium Level 8.0L, Phosphorus Level 2.5, Magnesium Level 2.0, Total Bilirubin 0.4, Aspartate Amino Transf (AST/SGOT) 30, Alanine Aminotransferase (ALT/SGPT) 24, Alkaline Phosphatase 61, Total Protein 5.7L, Albumin 3.0L, Globulin 2.7, Albumin /Globulin Ratio 1.1 Height (Feet): 5 Height (Inches): 5.00 Weight (Pounds): 138 Objective WDWN NCAT supple CTA RRR soft ND (+) TTP lower abd no edema Thony Garzon MD July 01, 2017 18:13
[2017-07-01 20:00] VITALS: BP 146/76
[2017-07-01] MEDS: Metamucil Pkt ORAL SCH (20:44)
--- NOTE | 2017-07-01 22:08 | Pulmonology Progress Note ---
Assessment/Plan Problems: (1) Shock (2) Acute encephalopathy (3) Hypotension (4) Syncope (5) IBD (inflammatory bowel disease) Assessment/Plan improving iv fluids continue abc advance diet check electrolytes GI and ID f/u Subjective ROS Limited/Unobtainable: No Constitutional: Reports: no symptoms HEENT: Repors: no symptoms Respiratory: Reports: no symptoms Allergies: Coded Allergies: CODEINE (Verified Allergy, Unknown, Itching, 06/28/17) NAPROXEN (Verified Allergy, Unknown, 06/28/17) Objective Last 24 Hour Vital Signs Date Time Temp Pulse Resp B/P (MAP) Pulse Ox O2 Delivery O2 Flow Rate FiO2 07/01/17 20:05 69 18 Room Air 21 07/01/17 20:00 98.3 72 20 146/76 96 98.3 07/01/17 16:00 98.1 75 20 132/70 98 Room Air 98.1 07/01/17 12:00 98.7 72 20 136/72 99 Room Air 98.7 07/01/17 08:00 98.6 79 20 140/67 96 Room Air 98.6 07/01/17 08:00 80 18 Room Air 21 07/01/17 04:00 98.1 72 18 124/63 92 Room Air 98.1 07/01/17 00:00 97.8 70 18 117/63 92 Room Air 97.8 Intake and Output 06/30/17 07/01/17 19:00 07:00 Intake Total 1302.5 ml 1037.5 ml Balance 1302.5 ml 1037.5 ml Intake Oral 220 ml IV Total 1082.5 ml 1037.5 ml # Voids 5 # Bowel Movements 3 General Appearance: WD/WN, no acute distress HEENT: normocephalic Respiratory/Chest: chest wall non-tender, lungs clear Cardiovascular: normal peripheral pulses, normal rate Abdomen: normal bowel sounds, soft, non tender Extremities: no cyanosis Skin: no rash Microbiology Date/Time Source Procedure Growth Status 06/28/17 23:30 Stool Clostridium difficile Toxin Assay - Final Complete Laboratory Tests 07/01/17 07:25: White Blood Count 6.5, Red Blood Count 3.69L, Hemoglobin 11.0L, Hematocrit 32.8L , Mean Corpuscular Volume 89, Mean Corpuscular Hemoglobin 29.7, Mean Corpuscular Hemoglobin Concent 33.4, Red Cell Distribution Width 12.2, Platelet Count 179, Mean Platelet Volume 6.7, Neutrophils (%) (Auto) 67.7, Lymphocytes (% ) (Auto) 13.7L, Monocytes (%) (Auto) 9.7, Eosinophils (%) (Auto) 7.4H, Basophils (%) (Auto) 1.5, Sodium Level 143, Potassium Level 3.4L, Chloride Level 109H, Carbon Dioxide Level 29, Anion Gap 5, Blood Urea Nitrogen 4L, Creatinine 0.6, Estimat Glomerular Filtration Rate , Glucose Level 91, Calcium Level 8.0L, Phosphorus Level 2.5, Magnesium Level 2.0, Total Bilirubin 0.4, Aspartate Amino Transf (AST/SGOT) 30, Alanine Aminotransferase (ALT/SGPT) 24, Alkaline Phosphatase 61, Total Protein 5.7L, Albumin 3.0L, Globulin 2.7, Albumin /Globulin Ratio 1.1 Current Medications Medications (Trade) Dose Ordered Sig/Michael Route PRN Reason Start Time Stop Time Status Last Admin Dose Admin Acetaminophen (Tylenol) 650 mg Q4H PRN ORAL Mild Pain/Temp > 100.5 07/01/17 18:30 07/28/17 22:29 Acetaminophen/ Hydrocodone Bitart ([place] 5/325) 1 tab Q6H PRN ORAL Moderate Pain (Pain Scale 4-6) 06/30/17 15:00 07/07/17 14:59 07/01/17 02:00 Albuterol/ Ipratropium (Albuterol/ Ipratropium) 3 ml Q4H PRN HHN Shortness of Breath 06/30/17 15:00 07/05/17 14:59 Heparin Sodium (Porcine) (Heparin 5000 units/ml) 5,000 units EVERY 12 HOURS SUBQ 07/01/17 21:00 07/29/17 20:59 07/01/17 20:45 Lactobacillus Acidophilus (Culturelle) 1 tab THREE TIMES A DAY ORAL 07/01/17 15:45 07/31/17 15:44 07/01/17 20:44 Morphine Sulfate (Morphine Sulfate) 2 mg Q3H PRN IVP Severe Pain (Pain Scale 7-10) 06/30/17 14:30 07/07/17 11:29 Ondansetron HCl (Zofran) 4 mg Q6H PRN IVP Nausea & Vomiting 06/30/17 15:00 07/28/17 14:59 07/01/17 16:41 Pantoprazole (Protonix) 40 mg DAILY IVP 07/02/17 09:00 07/29/17 08:59 Piperacillin Sod/ Tazobactam Sod 3.375 gm/Dextrose 110 ml @ 27.5 mls/hr EVERY 8 HOURS IVPB 06/30/17 22:00 07/05/17 21:59 07/01/17 20:44 Polyethylene Glycol (Miralax) 17 gm DAILYPRN PRN ORAL Constipation 06/30/17 15:00 07/28/17 14:59 Psyllium Hydrophilic Mucilloid (Metamucil) 1 pkt QHS ORAL 07/01/17 21:00 07/31/17 20:59 07/01/17 20:44 Orville Lennon MD July 01, 2017 22:08
[2017-07-02] VITALS: BP 166/76
[2017-07-02 04:00] VITALS: BP 131/71
[2017-07-02] MEDS: Piperacillin/Tazobactam 3.375 GM in D5W 110 ML IVPB SCH ×3 (05:56→21:59)
[2017-07-02 08:00] VITALS: BP 141/71
[2017-07-02] MEDS: Pantoprazole Inj IVP SCH (08:44)
[2017-07-02] MEDS: Lactobacillus-GG tablet ORAL SCH ×3 (08:45→18:38)
[2017-07-02] MEDS: Heparin 5000 units/ml inj SUBQ SCH ×2 (08:46→20:52)
--- NOTE | 2017-07-02 11:22 | General Progress Note ---
Assessment/Plan Assessment/Plan Assessment/Plan Assessment/Plan Assessment: Sepsis- 2ry enterocolitis (f/o bacterial vs paraiste, r/o non-infection)-, r/o bacteremia (from GI translocation), r/o IBD -CT abd/p: Diffuse enterocolitis with the wall thickening and abnormal enhancement of multiple loops of small bowel as well as colon. Mild ascites. Hemangioma suspected within the right lobe of the liver. Prominent liver cyst. Atherosclerotic disease. Degenerative changes of the spine. Shock, SP - likely combination of dehydration due to diarrhea and sepsis Leukocytosis, resolved -afebrile Lactic acidosis, resolved Syncopal episode- likely due to dehydration s/p sigmoid resection for rectal prolapse s/p cholecystectomy Plan: continue with current management. KCL 40 meq x1 now daily labs ordered Subjective Allergies: Coded Allergies: CODEINE (Verified Allergy, Unknown, Itching, 06/28/17) NAPROXEN (Verified Allergy, Unknown, 06/28/17) Objective Last 24 Hour Vital Signs Date Time Temp Pulse Resp B/P (MAP) Pulse Ox O2 Delivery O2 Flow Rate FiO2 07/02/17 08:00 98.0 74 17 141/71 96 Room Air 98.0 07/02/17 04:00 98.4 72 20 131/71 95 98.4 07/02/17 00:00 98.0 70 20 166/76 96 98.0 07/01/17 20:05 69 18 Room Air 21 07/01/17 20:00 98.3 72 20 146/76 96 98.3 07/01/17 16:00 98.1 75 20 132/70 98 Room Air 98.1 07/01/17 12:00 98.7 72 20 136/72 99 Room Air 98.7 Intake and Output 07/01/17 07/02/17 19:00 07:00 Intake Total 240 ml 557.5 ml Balance 240 ml 557.5 ml Intake Oral 240 ml 420 ml IV Total 137.5 ml # Voids 2 2 # Bowel Movements 2 4 Height (Feet): 5 Height (Inches): 5.00 Weight (Pounds): 129 Objective Height (Feet): 5 Height (Inches): 5.00 Weight (Pounds): 138 HEENT: mucous membranes moist Respiratory/Chest: normal breath sounds Cardiovascular: regular rhythm Abdomen: no organomegaly Naima Lebron MD July 02, 2017 11:22
[2017-07-02 12:00] VITALS: BP 152/79
--- NOTE | 2017-07-02 14:40 | General Progress Note ---
Assessment/Plan Assessment/Plan Assessment (1) Enterocolitis ICD Codes: K52.9 - Noninfective gastroenteritis and colitis, unspecified SNOMED: 71879214 (2) IBD (inflammatory bowel disease) ICD Codes: K52.9 - Noninfective gastroenteritis and colitis, unspecified SNOMED: 21654189 Status: progressing Assessment/Plan recent dietary change CT reviewed >> Diffuse enterocolitis. hx of sigmoid resection for rectal prolapse hx of cholecystectomy recent colonoscopy x 2 years >> unremarkable rectal bleeding at times, most likely hemorrhoidal stable H&H cdiff negative OB (+) Recommendations symptomatic treatment --> Fiber and probiotics outpatient EGD/Colon adv to soft ADA diet fu stool studies, O&P pain mgmt ppi electrolyte correction abx fu labs Subjective Allergies: Coded Allergies: CODEINE (Verified Allergy, Unknown, Itching, 06/28/17) NAPROXEN (Verified Allergy, Unknown, 06/28/17) Subjective Better today still with diarrhea Objective Last 24 Hour Vital Signs Date Time Temp Pulse Resp B/P (MAP) Pulse Ox O2 Delivery O2 Flow Rate FiO2 07/02/17 12:47 98.2 07/02/17 12:00 98.2 76 18 152/79 98 Room Air 98.2 07/02/17 11:48 98.0 07/02/17 10:26 66 20 Room Air 21 07/02/17 08:00 98.0 74 17 141/71 96 Room Air 98.0 07/02/17 04:00 98.4 72 20 131/71 95 98.4 07/02/17 00:00 98.0 70 20 166/76 96 98.0 07/01/17 20:05 69 18 Room Air 21 07/01/17 20:00 98.3 72 20 146/76 96 98.3 07/01/17 16:00 98.1 75 20 132/70 98 Room Air 98.1 Intake and Output 07/01/17 07/02/17 19:00 07:00 Intake Total 240 ml 557.5 ml Balance 240 ml 557.5 ml Intake Oral 240 ml 420 ml IV Total 137.5 ml # Voids 2 2 # Bowel Movements 2 4 Height (Feet): 5 Height (Inches): 5.00 Weight (Pounds): 129 Objective WDWN NCAT supple CTA RRR soft ND (+) TTP lower abd no edema Thony Garzon MD July 02, 2017 14:40
[2017-07-02 16:00] VITALS: BP 156/84
[2017-07-02] MEDS ORDERED: Tubing IV Secondary IV ONE (16:06)
[2017-07-02 20:00] VITALS: BP 153/87
[2017-07-02] MEDS: Metamucil Pkt ORAL SCH (20:50)
[2017-07-03] VITALS: BP 148/71
[2017-07-03 04:00] VITALS: BP 157/88
[2017-07-03] MEDS: Piperacillin/Tazobactam 3.375 GM in D5W 110 ML IVPB SCH ×2 (05:18→14:12)
[2017-07-03 08:00] VITALS: BP 143/77
[2017-07-03] MEDS: Pantoprazole Inj IVP SCH (08:03)
[2017-07-03] MEDS: Lactobacillus-GG tablet ORAL SCH ×2 (08:03→14:04)
[2017-07-03] MEDS: Heparin 5000 units/ml inj SUBQ SCH (08:04)
[2017-07-03 08:25] LABS: BASOPHILS % (AUTO) 1.3 % (0.0-2.0); EOSINOPHILS % (AUTO) 8.2 % (0.0-3.0); HEMATOCRIT 33.4 % (37.0-47.0); HEMOGLOBIN 10.9 G/DL (12.0-16.0); LYMPHOCYTES % (AUTO) 16.9 % (20.0-45.0); MEAN CORPUSCULAR VOLUME 88 FL (80-99); MONOCYTES % (AUTO) 9.7 % (1.0-10.0); NEUTROPHILS % (AUTO) 63.9 % (45.0-75.0); PLATELET COUNT 210 K/UL (150-450); RED CELL DISTRIBUTION WIDTH 12.1 % (11.6-14.8); WHITE BLOOD COUNT 6.7 K/UL (4.8-10.8)
[2017-07-03 08:40] LABS: ALANINE AMINOTRANSFERASE 41 U/L (12-78); ALBUMIN 3.1 G/DL (3.4-5.0); ALBUMIN/GLOBULIN RATIO 1.1 (1.0-2.7); ALKALINE PHOSPHATASE 61 U/L (46-116); ANION GAP 6 mmol/L (5-15); ASPARTATE AMINO TRANSFERASE 26 U/L (15-37); BILIRUBIN,TOTAL 0.5 MG/DL (0.2-1.0); BLOOD UREA NITROGEN 4 mg/dL (7-18); CALCIUM 8.6 MG/DL (8.5-10.1); CARBON DIOXIDE 31 MMOL/L (21-32); CHLORIDE 108 MMOL/L (98-107); CREATININE 0.7 MG/DL (0.55-1.30); POTASSIUM 3.6 MMOL/L (3.5-5.1); SODIUM 144 MMOL/L (136-145)
--- NOTE | 2017-07-03 10:35 | Infectious Diseases Prog Note ---
Assessment/Plan Assessment/Plan Assessment: Sepsis- 2ry enterocolitis , SP Rx, loose BM , likely due to IBD -CT abd/p: Diffuse enterocolitis with the wall thickening and abnormal enhancement of multiple loops of small bowel as well as colon. Mild ascites. Hemangioma suspected within the right lobe of the liver. Prominent liver cyst. Atherosclerotic disease. Degenerative changes of the spine. -CXR: No acute findings -u/a neg -C diff neg -Bcx NTD -Stool cx : Neg -HIV ab neg -ESR 8, CRP 2.7 Shock, SP - likely combination of dehydration due to diarrhea and sepsis Leukocytosis, resolved -afebrile Lactic acidosis, resolved Syncopal episode- likely due to dehydration -echo EF 65% -CTA chest: No acute findings. No evidence of pulmonary embolus. Heterogeneous thyroid gland. Consider further evaluation with ultrasound hx of IBS s/p sigmoid resection for rectal prolapse s/p cholecystectomy Plan: - DC Zosyn # 5 / for enterocolitis , ok to DC pt off of AB Rx -06/29 SP IV Vancomycin #2, Amikacin and Ertapenem #1 -f/u cx (bloodl) -f/u Giardia, microsporidium, cyclospora/isospora -Monitor CBC/BMP, temperatures -aspiration precautions Subjective Constitutional: Denies: no symptoms, fever, chills, fatigue, anorexia, drenching sweats, other Allergies: Coded Allergies: CODEINE (Verified Allergy, Unknown, Itching, 06/28/17) NAPROXEN (Verified Allergy, Unknown, 06/28/17) Objective Vital Signs Last 24 Hour Vital Signs Date Time Temp Pulse Resp B/P (MAP) Pulse Ox O2 Delivery O2 Flow Rate FiO2 07/03/17 08:00 98.0 78 18 143/77 98 Room Air 98.0 07/03/17 07:48 97.3 07/03/17 07:39 78 18 Room Air 21 07/03/17 04:00 97.3 79 20 157/88 96 97.3 07/03/17 00:00 98.0 68 20 148/71 96 98.0 07/02/17 20:00 98.3 71 20 153/87 96 98.3 07/02/17 19:58 72 20 Room Air 21 07/02/17 16:00 98.7 77 16 156/84 97 Room Air 98.7 07/02/17 12:00 98.2 76 18 152/79 98 Room Air 98.2 07/02/17 11:48 98.0 Height (Feet): 5 Height (Inches): 5.00 Weight (Pounds): 126 HEENT: anicteric Respiratory/Chest: no respiratory distress Cardiovascular: regular rhythm Abdomen: no organomegaly Laboratory Tests Test 07/03/17 07:10 White Blood Count 6.7 K/UL (4.8-10.8) Red Blood Count 3.80 M/UL (4.20-5.40) L Hemoglobin 10.9 G/DL (12.0-16.0) L Hematocrit 33.4 % (37.0-47.0) L Mean Corpuscular Volume 88 FL (80-99) Mean Corpuscular Hemoglobin 28.7 PG (27.0-31.0) Mean Corpuscular Hemoglobin Concent 32.7 G/DL (32.0-36.0) Red Cell Distribution Width 12.1 % (11.6-14.8) Platelet Count 210 K/UL (150-450) Mean Platelet Volume 6.2 FL (6.5-10.1) L Neutrophils (%) (Auto) 63.9 % (45.0-75.0) Lymphocytes (%) (Auto) 16.9 % (20.0-45.0) L Monocytes (%) (Auto) 9.7 % (1.0-10.0) Eosinophils (%) (Auto) 8.2 % (0.0-3.0) H Basophils (%) (Auto) 1.3 % (0.0-2.0) Sodium Level 144 MMOL/L (136-145) Potassium Level 3.6 MMOL/L (3.5-5.1) Chloride Level 108 MMOL/L (98-107) H Carbon Dioxide Level 31 MMOL/L (21-32) Anion Gap 6 mmol/L (5-15) Blood Urea Nitrogen 4 mg/dL (7-18) L Creatinine 0.7 MG/DL (0.55-1.30) Estimat Glomerular Filtration Rate mL/min (>60) Glucose Level 100 MG/DL (74-106) Calcium Level 8.6 MG/DL (8.5-10.1) Total Bilirubin 0.5 MG/DL (0.2-1.0) Aspartate Amino Transf (AST/SGOT) 26 U/L (15-37) Alanine Aminotransferase (ALT/SGPT) 41 U/L (12-78) Alkaline Phosphatase 61 U/L (46-116) Total Protein 6.0 G/DL (6.4-8.2) L Albumin 3.1 G/DL (3.4-5.0) L Globulin 2.9 g/dL Albumin/Globulin Ratio 1.1 (1.0-2.7) Current Medications Medications (Trade) Dose Ordered Sig/Michael Route PRN Reason Start Time Stop Time Status Last Admin Dose Admin Acetaminophen (Tylenol) 650 mg Q4H PRN ORAL Mild Pain/Temp > 100.5 07/01/17 18:30 07/28/17 22:29 07/03/17 06:49 Acetaminophen/ Hydrocodone Bitart ([place] 5/325) 1 tab Q6H PRN ORAL Moderate Pain (Pain Scale 4-6) 06/30/17 15:00 07/07/17 14:59 07/01/17 02:00 Albuterol/ Ipratropium (Albuterol/ Ipratropium) 3 ml Q4H PRN HHN Shortness of Breath 06/30/17 15:00 07/05/17 14:59 Heparin Sodium (Porcine) (Heparin 5000 units/ml) 5,000 units EVERY 12 HOURS SUBQ 07/01/17 21:00 07/29/17 20:59 07/03/17 08:04 Lactobacillus Acidophilus (Culturelle) 1 tab THREE TIMES A DAY ORAL 07/01/17 15:45 07/31/17 15:44 07/03/17 08:03 Morphine Sulfate (Morphine Sulfate) 2 mg Q3H PRN IVP Severe Pain (Pain Scale 7-10) 06/30/17 14:30 07/07/17 11:29 Ondansetron HCl (Zofran) 4 mg Q6H PRN IVP Nausea & Vomiting 06/30/17 15:00 07/28/17 14:59 07/02/17 08:44 Pantoprazole (Protonix) 40 mg DAILY IVP 07/02/17 09:00 07/29/17 08:59 07/03/17 08:03 Piperacillin Sod/ Tazobactam Sod 3.375 gm/Dextrose 110 ml @ 27.5 mls/hr EVERY 8 HOURS IVPB 06/30/17 22:00 07/05/17 21:59 07/03/17 05:18 Polyethylene Glycol (Miralax) 17 gm DAILYPRN PRN ORAL Constipation 06/30/17 15:00 07/28/17 14:59 Psyllium Hydrophilic Mucilloid (Metamucil) 1 pkt QHS ORAL 07/01/17 21:00 07/31/17 20:59 07/02/17 20:50 Simone Collins MD July 03, 2017 10:35
[2017-07-03 12:00] VITALS: BP 147/82
--- NOTE | 2017-07-03 12:02 | GI Progress Note ---
Assessment/Plan Problems: (1) Enterocolitis ICD Codes: K52.9 - Noninfective gastroenteritis and colitis, unspecified SNOMED: 64124345 (2) IBD (inflammatory bowel disease) ICD Codes: K52.9 - Noninfective gastroenteritis and colitis, unspecified SNOMED: 85837409 Status: stable Status Narrative Discussed with Dr. Julio. Assessment/Plan recent dietary change CT reviewed >> Diffuse enterocolitis. hx of sigmoid resection for rectal prolapse hx of cholecystectomy recent colonoscopy x 2 years >> unremarkable rectal bleeding at times, most likely hemorrhoidal stable H&H cdiff negative OB (+) Recommendations okay for DC per GI standpoint symptomatic treatment --> Fiber and probiotics outpatient EGD/Colon adv to soft ADA diet fu stool studies, O&P pain mgmt ppi electrolyte correction abx fu labs The patient was seen and examined at bedside and all new and available data was reviewed in the patients chart. I agree with the above findings, impression and plan. (Patient seen earlier today. Signature stamp does not reflect patient encounter time.). - Ryan Julio MD Subjective Subjective abdominal pain improving Objective Last 24 Hour Vital Signs Date Time Temp Pulse Resp B/P (MAP) Pulse Ox O2 Delivery O2 Flow Rate FiO2 07/03/17 08:00 98.0 78 18 143/77 98 Room Air 98.0 07/03/17 07:48 97.3 07/03/17 07:39 78 18 Room Air 21 07/03/17 04:00 97.3 79 20 157/88 96 97.3 07/03/17 00:00 98.0 68 20 148/71 96 98.0 07/02/17 20:00 98.3 71 20 153/87 96 98.3 07/02/17 19:58 72 20 Room Air 21 07/02/17 16:00 98.7 77 16 156/84 97 Room Air 98.7 Intake and Output 07/02/17 07/03/17 19:00 07:00 Intake Total 670 ml Balance 670 ml Intake Oral 670 ml # Voids 6 # Bowel Movements 1 1 Laboratory Tests Test 07/03/17 07:10 White Blood Count 6.7 K/UL (4.8-10.8) Red Blood Count 3.80 M/UL (4.20-5.40) L Hemoglobin 10.9 G/DL (12.0-16.0) L Hematocrit 33.4 % (37.0-47.0) L Mean Corpuscular Volume 88 FL (80-99) Mean Corpuscular Hemoglobin 28.7 PG (27.0-31.0) Mean Corpuscular Hemoglobin Concent 32.7 G/DL (32.0-36.0) Red Cell Distribution Width 12.1 % (11.6-14.8) Platelet Count 210 K/UL (150-450) Mean Platelet Volume 6.2 FL (6.5-10.1) L Neutrophils (%) (Auto) 63.9 % (45.0-75.0) Lymphocytes (%) (Auto) 16.9 % (20.0-45.0) L Monocytes (%) (Auto) 9.7 % (1.0-10.0) Eosinophils (%) (Auto) 8.2 % (0.0-3.0) H Basophils (%) (Auto) 1.3 % (0.0-2.0) Sodium Level 144 MMOL/L (136-145) Potassium Level 3.6 MMOL/L (3.5-5.1) Chloride Level 108 MMOL/L (98-107) H Carbon Dioxide Level 31 MMOL/L (21-32) Anion Gap 6 mmol/L (5-15) Blood Urea Nitrogen 4 mg/dL (7-18) L Creatinine 0.7 MG/DL (0.55-1.30) Estimat Glomerular Filtration Rate mL/min (>60) Glucose Level 100 MG/DL (74-106) Calcium Level 8.6 MG/DL (8.5-10.1) Total Bilirubin 0.5 MG/DL (0.2-1.0) Aspartate Amino Transf (AST/SGOT) 26 U/L (15-37) Alanine Aminotransferase (ALT/SGPT) 41 U/L (12-78) Alkaline Phosphatase 61 U/L (46-116) Total Protein 6.0 G/DL (6.4-8.2) L Albumin 3.1 G/DL (3.4-5.0) L Globulin 2.9 g/dL Albumin/Globulin Ratio 1.1 (1.0-2.7) Height (Feet): 5 Height (Inches): 5.00 Weight (Pounds): 126 General Appearance: WD/WN, no apparent distress, alert Cardiovascular: normal rate Respiratory/Chest: normal breath sounds, no respiratory distress Abdominal Exam: normal bowel sounds, non tender, soft Extremities: normal range of motion, non-tender Dai Doherty NP July 03, 2017 12:02
--- NOTE | 2017-07-03 14:53 | Pulmonology Progress Note ---
Assessment/Plan Problems: (1) Shock (2) Acute encephalopathy (3) Hypotension (4) Syncope (5) IBD (inflammatory bowel disease) Assessment/Plan no new complains wants to go home improving iv fluids continue abc advance diet check electrolytes GI and ID f/u Subjective ROS Limited/Unobtainable: No Constitutional: Reports: no symptoms HEENT: Repors: no symptoms Respiratory: Reports: no symptoms Cardiovascular: Reports: no symptoms Allergies: Coded Allergies: CODEINE (Verified Allergy, Unknown, Itching, 06/28/17) NAPROXEN (Verified Allergy, Unknown, 06/28/17) Objective Last 24 Hour Vital Signs Date Time Temp Pulse Resp B/P (MAP) Pulse Ox O2 Delivery O2 Flow Rate FiO2 07/03/17 08:00 98.0 78 18 143/77 98 Room Air 98.0 07/03/17 07:48 97.3 07/03/17 07:39 78 18 Room Air 21 07/03/17 04:00 97.3 79 20 157/88 96 97.3 07/03/17 00:00 98.0 68 20 148/71 96 98.0 07/02/17 20:00 98.3 71 20 153/87 96 98.3 07/02/17 19:58 72 20 Room Air 21 07/02/17 16:00 98.7 77 16 156/84 97 Room Air 98.7 Intake and Output 07/02/17 07/03/17 19:00 07:00 Intake Total 670 ml Balance 670 ml Intake Oral 670 ml # Voids 6 # Bowel Movements 1 1 General Appearance: WD/WN HEENT: normocephalic, atraumatic Respiratory/Chest: chest wall non-tender, lungs clear Breasts: no masses Cardiovascular: normal peripheral pulses Abdomen: normal bowel sounds, soft, non tender Genitourinary: normal external genitalia Extremities: no clubbing Skin: no lesions Neurologic/Psychiatric: surface miner II-XII grossly normal Lymphatic: no neck adenopathy Laboratory Tests 07/03/17 07:10: White Blood Count 6.7, Red Blood Count 3.80L, Hemoglobin 10.9L, Hematocrit 33.4L , Mean Corpuscular Volume 88, Mean Corpuscular Hemoglobin 28.7, Mean Corpuscular Hemoglobin Concent 32.7, Red Cell Distribution Width 12.1, Platelet Count 210, Mean Platelet Volume 6.2L, Neutrophils (%) (Auto) 63.9, Lymphocytes ( %) (Auto) 16.9L, Monocytes (%) (Auto) 9.7, Eosinophils (%) (Auto) 8.2H, Basophils (%) (Auto) 1.3, Sodium Level 144, Potassium Level 3.6, Chloride Level 108H, Carbon Dioxide Level 31, Anion Gap 6, Blood Urea Nitrogen 4L, Creatinine 0.7, Estimat Glomerular Filtration Rate , Glucose Level 100, Calcium Level 8.6, Total Bilirubin 0.5, Aspartate Amino Transf (AST/SGOT) 26, Alanine Aminotransferase (ALT/SGPT) 41, Alkaline Phosphatase 61, Total Protein 6.0L, Albumin 3.1L, Globulin 2.9, Albumin/Globulin Ratio 1.1 Current Medications Medications (Trade) Dose Ordered Sig/Michael Route PRN Reason Start Time Stop Time Status Last Admin Dose Admin Acetaminophen (Tylenol) 650 mg Q4H PRN ORAL Mild Pain/Temp > 100.5 07/01/17 18:30 07/28/17 22:29 07/03/17 06:49 Acetaminophen/ Hydrocodone Bitart ([place] 5/325) 1 tab Q6H PRN ORAL Moderate Pain (Pain Scale 4-6) 06/30/17 15:00 07/07/17 14:59 07/01/17 02:00 Albuterol/ Ipratropium (Albuterol/ Ipratropium) 3 ml Q4H PRN HHN Shortness of Breath 06/30/17 15:00 07/05/17 14:59 Heparin Sodium (Porcine) (Heparin 5000 units/ml) 5,000 units EVERY 12 HOURS SUBQ 07/01/17 21:00 07/29/17 20:59 07/03/17 08:04 Lactobacillus Acidophilus (Culturelle) 1 tab THREE TIMES A DAY ORAL 07/01/17 15:45 07/31/17 15:44 07/03/17 14:04 Morphine Sulfate (Morphine Sulfate) 2 mg Q3H PRN IVP Severe Pain (Pain Scale 7-10) 06/30/17 14:30 07/07/17 11:29 Ondansetron HCl (Zofran) 4 mg Q6H PRN IVP Nausea & Vomiting 06/30/17 15:00 07/28/17 14:59 07/02/17 08:44 Pantoprazole (Protonix) 40 mg DAILY IVP 07/02/17 09:00 07/29/17 08:59 07/03/17 08:03 Piperacillin Sod/ Tazobactam Sod 3.375 gm/Dextrose 110 ml @ 27.5 mls/hr EVERY 8 HOURS IVPB 06/30/17 22:00 07/03/17 23:30 07/03/17 14:12 Polyethylene Glycol (Miralax) 17 gm DAILYPRN PRN ORAL Constipation 06/30/17 15:00 07/28/17 14:59 Psyllium Hydrophilic Mucilloid (Metamucil) 1 pkt QHS ORAL 07/01/17 21:00 07/31/17 20:59 07/02/17 20:50 Orville Lennon MD July 03, 2017 14:53
--- NOTE | 2017-07-03 15:30 | Consultation ---
History of Present Illness General Date patient seen: July 02, 2017 Chief Complaint: Syncope Referring physician: PRINCESS HARRIS Reason for Consultation: COLITIS Present Illness HPI 71 y/o F with hx of IBS, s/p sigmoid resection for rectal prolapse, s/p cholecystectomy presents to ED on 06/28 after syncopal episode. Patient refers that days prior she was doing fine with no fever, chills, diarrhea. the pt has anxiety and depression Allergies: Coded Allergies: CODEINE (Verified Allergy, Unknown, Itching, 06/28/17) NAPROXEN (Verified Allergy, Unknown, 06/28/17) Medication History No Active Prescriptions or Reported Meds Patient History Limited by: medical condition History Provided By: Patient, Medical Record, PMD Healthcare decision maker Resuscitation status Advanced Directive on File No Past Medical/Surgical History Past Medical/Surgical History: (1) IBD (inflammatory bowel disease) (2) Shock (3) Acute encephalopathy (4) Enterocolitis (5) Hypomagnesemia (6) Hypophosphatemia Review of Systems Psychiatric: Reports: prior hx, anxiety, depressed feelings, emotional problems Physical Exam General Appearance: WD/WN, no apparent distress, alert Neurologic: oriented x 3, responsive, normal mood/affect Last 24 Hour Vital Signs Date Time Temp Pulse Resp B/P (MAP) Pulse Ox O2 Delivery O2 Flow Rate FiO2 07/03/17 08:00 98.0 78 18 143/77 98 Room Air 98.0 07/03/17 07:48 97.3 07/03/17 07:39 78 18 Room Air 21 07/03/17 04:00 97.3 79 20 157/88 96 97.3 07/03/17 00:00 98.0 68 20 148/71 96 98.0 07/02/17 20:00 98.3 71 20 153/87 96 98.3 07/02/17 19:58 72 20 Room Air 21 07/02/17 16:00 98.7 77 16 156/84 97 Room Air 98.7 Intake and Output 07/02/17 07/03/17 19:00 07:00 Intake Total 670 ml Balance 670 ml Intake Oral 670 ml # Voids 6 # Bowel Movements 1 1 Laboratory Tests Test 07/03/17 07:10 White Blood Count 6.7 K/UL (4.8-10.8) Red Blood Count 3.80 M/UL (4.20-5.40) L Hemoglobin 10.9 G/DL (12.0-16.0) L Hematocrit 33.4 % (37.0-47.0) L Mean Corpuscular Volume 88 FL (80-99) Mean Corpuscular Hemoglobin 28.7 PG (27.0-31.0) Mean Corpuscular Hemoglobin Concent 32.7 G/DL (32.0-36.0) Red Cell Distribution Width 12.1 % (11.6-14.8) Platelet Count 210 K/UL (150-450) Mean Platelet Volume 6.2 FL (6.5-10.1) L Neutrophils (%) (Auto) 63.9 % (45.0-75.0) Lymphocytes (%) (Auto) 16.9 % (20.0-45.0) L Monocytes (%) (Auto) 9.7 % (1.0-10.0) Eosinophils (%) (Auto) 8.2 % (0.0-3.0) H Basophils (%) (Auto) 1.3 % (0.0-2.0) Sodium Level 144 MMOL/L (136-145) Potassium Level 3.6 MMOL/L (3.5-5.1) Chloride Level 108 MMOL/L (98-107) H Carbon Dioxide Level 31 MMOL/L (21-32) Anion Gap 6 mmol/L (5-15) Blood Urea Nitrogen 4 mg/dL (7-18) L Creatinine 0.7 MG/DL (0.55-1.30) Estimat Glomerular Filtration Rate mL/min (>60) Glucose Level 100 MG/DL (74-106) Calcium Level 8.6 MG/DL (8.5-10.1) Total Bilirubin 0.5 MG/DL (0.2-1.0) Aspartate Amino Transf (AST/SGOT) 26 U/L (15-37) Alanine Aminotransferase (ALT/SGPT) 41 U/L (12-78) Alkaline Phosphatase 61 U/L (46-116) Total Protein 6.0 G/DL (6.4-8.2) L Albumin 3.1 G/DL (3.4-5.0) L Globulin 2.9 g/dL Albumin/Globulin Ratio 1.1 (1.0-2.7) Height (Feet): 5 Height (Inches): 5.00 Weight (Pounds): 126 Medications Current Medications Medications (Trade) Dose Ordered Sig/Michael Route PRN Reason Start Time Stop Time Status Last Admin Dose Admin Acetaminophen (Tylenol) 650 mg Q4H PRN ORAL Mild Pain/Temp > 100.5 07/01/17 18:30 07/28/17 22:29 07/03/17 06:49 Acetaminophen/ Hydrocodone Bitart ([place] 5/325) 1 tab Q6H PRN ORAL Moderate Pain (Pain Scale 4-6) 06/30/17 15:00 07/07/17 14:59 07/01/17 02:00 Albuterol/ Ipratropium (Albuterol/ Ipratropium) 3 ml Q4H PRN HHN Shortness of Breath 06/30/17 15:00 07/05/17 14:59 Heparin Sodium (Porcine) (Heparin 5000 units/ml) 5,000 units EVERY 12 HOURS SUBQ 07/01/17 21:00 07/29/17 20:59 07/03/17 08:04 Lactobacillus Acidophilus (Culturelle) 1 tab THREE TIMES A DAY ORAL 07/01/17 15:45 07/31/17 15:44 07/03/17 14:04 Morphine Sulfate (Morphine Sulfate) 2 mg Q3H PRN IVP Severe Pain (Pain Scale 7-10) 06/30/17 14:30 07/07/17 11:29 Ondansetron HCl (Zofran) 4 mg Q6H PRN IVP Nausea & Vomiting 06/30/17 15:00 07/28/17 14:59 07/02/17 08:44 Pantoprazole (Protonix) 40 mg DAILY IVP 07/02/17 09:00 07/29/17 08:59 07/03/17 08:03 Piperacillin Sod/ Tazobactam Sod 3.375 gm/Dextrose 110 ml @ 27.5 mls/hr EVERY 8 HOURS IVPB 06/30/17 22:00 07/03/17 23:30 07/03/17 14:12 Polyethylene Glycol (Miralax) 17 gm DAILYPRN PRN ORAL Constipation 06/30/17 15:00 07/28/17 14:59 Psyllium Hydrophilic Mucilloid (Metamucil) 1 pkt QHS ORAL 5/12/18 21:00 07/31/17 20:59 07/02/17 20:50 Assessment/Plan Status: stable, progressing Assessment/Plan MDD cognitive impairment anxiety d/o - cont current meds - provided pj/Elena Andrade M.D. July 03, 2017 15:30
[2017-07-03 16:00] VITALS: BP 143/75
[2017-07-03] MEDS ORDERED: NS 275ml ONE (17:04)
[2017-07-03] MEDS ORDERED: Tubing IV Secondary IV ONE (17:04)
--- NOTE | 2017-07-04 13:54 | General Progress Note ---
Assessment/Plan Status: stable Assessment/Plan MDD cognitive impairment anxiety d/o - cont current meds - provided ro/st Subjective Date patient seen: July 03, 2017 Neurologic/Psychiatric: Reports: anxiety, depressed, emotional problems Allergies: Coded Allergies: CODEINE (Verified Allergy, Unknown, Itching, 06/28/17) NAPROXEN (Verified Allergy, Unknown, 06/28/17) Objective Last 24 Hour Vital Signs Date Time Temp Pulse Resp B/P (MAP) Pulse Ox O2 Delivery O2 Flow Rate FiO2 07/03/17 16:00 98.4 78 18 143/75 99 Room Air 98.4 Intake and Output 07/03/17 07/04/17 19:00 07:00 Intake Total 480 ml Balance 480 ml Intake Oral 480 ml # Voids 3 # Bowel Movements 1 Height (Feet): 5 Height (Inches): 5.00 Weight (Pounds): 126 General Appearance: WD/WN, no apparent distress, alert Neurologic: oriented x 3, responsive Elena Becerra M.D. July 04, 2017 13:53
--- NOTE | 2017-07-05 08:42 | Discharge Summary ---
Discharge Summary Discharge Summary Discharge Summary DATE OF ADMISSION:06/28/2017 DATE OF DISCHARGE: 07/03/2017 REASON FOR ADMISSION: 71 years old female with past medical history significant for IBD, brought to emergency room for evaluation with a chief complaint of abdominal pain, diarrhea and syncopal episode which occurred earlier that day, while she was walking. She denied fever or chills. No chest pain or shortness of breath. She reported generalized weakness but no focal weakness. In emergency department she was found to be bradycardic and hypotensive, blood pressure 75/ 53. Laboratory workup revealed WBC 16.2, potassium 2.9, glucose 226. Troponin was negative. EKG revealed normal sinus rhythm, no acute ischemic changes. Lactic acid 2.4. Liver enzymes, bilirubin and lipase ,were all within normal limits. Chest x-ray revealed no acute cardiopulmonary pathology. CT abdomen and pelvis revealed diffuse enterocolitis with wall thickening and abnormal enhancement of multiply loops of small bowel as well as a colic. Mild ascites. Patient was given 3 L of fluid, however blood pressure did not respond to the fluid challenge. Central line was placed for pressors. Patient started on Levophed. Septic workup initiated. IV fluids continued. Patient pancultured and started on empiric antibiotics. Potassium was replaced. Patient was admitted with diagnosis of shock, sepsis, acute encephalopathy, hypotension , syncopal episode, IBD. CONSULTANTS: ID specialist Dr. Collins GI specialist Dr. Julio psychiatrist [facility] COURSE: Patient initially admitted to ICU. Patient was on pressors for hemodynamic support to keep mean arterial blood pressure above 65. Patient was on aggressive IV resuscitation. Patient was on empiric antibiotic under ID directions. DVT and GI prophylaxis provided. Stool culture was sent. Fortunately, patient soon was able to be weaned off pressors. Blood pressure stabilized. Stool for ova and parasite was negative. Stool for C. difficile was negative. Blood culture were negative. No Salmonella, Shigella or Campylobacter were identified. GI specialist closely followed. Patient had a history of sigmoid resection for rectal prolapse. Patient had recent colonoscopy 2 years ago which was unremarkable. CT of the abdomen and pelvis was personally reviewed by GI specialist that showed diffuse enterocolitis. Patient had recent dietary changes. Loose bowel movements was likely secondary to IBD. Patient had occasional rectal bleeding, most likely hemorrhoidal as per GI. Stool for occult blood was positive, however hemoglobin and hematocrit remained stable. GI recommended symptomatic treatment. Diet provided with high fiber and probiotics administered. GI also advised on outpatient EGD and colonoscopy. Diet was slowly advanced to soft diet , patient was able to tolerate diet. Pain management was addressed , pain was controlled. Patient was on PPI. Patient was on empiric antibiotic. Electrolytes were closely monitored and corrected as needed. Per ID okay to discontinue antibiotics and monitor patient off antibiotic: leukocytosis resolved, patient afebrile ,lactic acidosis resolved. ESR 8, CRP 2.7. Sepsis was likely secondary to enterocolitis , status post treatment. Loose bowel movement were likely due to the IBD. HIV test was negative. Syncopal episode was likely due to dehydration. Echocardiogram revealed preserved ejection fraction of 65% ,no evidence of left ventricular hypertrophy. Psychiatrist closely followed. Psychiatrist diagnosed the patient with major depressive disorder, anxiety disorder and cognitive impairment. Psychiatric medication regimen was optimized as per psychiatrist, reality orientation and supportive therapy were provided. Patient clinically improved. Status post treatment with antibiotics. Leukocytosis resolved, afebrile. Blood pressure stable. Mental status back to baseline. Patient was stable for discharge home with home health services. FINAL DIAGNOSES: Sepsis secondary to enterocolitis, status post treatment Shock, resolved ( likely due to dehydration secondary to diarrhea and sepsis) Lactic acidosis, resolved Syncopal episode, likely secondary to dehydration Dehydration Acute encephalopathy (likely due to sepsis and dehydration) ,resolved IBD Major depressive disorder Anxiety disorder Cognitive impairment DISCHARGE MEDICATIONS: See Medication Reconciliation list. DISCHARGE INSTRUCTIONS: Patient was discharged home with home health services. Follow-up with a primary care provider. Patient was educated on high-fiber diet with the probiotics. I have been assigned to dictate discharge summary for this account. I was not involved in the patient's management. Sanjuana Caban NP July 05, 2017 08:42
== END 2017-07-03 17:16 | disposition home health service (06) | DRG 871 ==
LOC: EDBD 17:32 → EMR 18:13 → ICU 18:23 → EDBEDREQ 19:23 → EDBEDREQSVC 19:59 → EDBEDREQ 22:06 → SDSOVERFLO 06-29 15:21 → ICU 06-29 15:23 → 4E 06-30 14:07
DX: A41.9 Sepsis, unspecified organism (principal); R65.21 Severe sepsis with septic shock; G93.41 Metabolic encephalopathy; Z88.6 Allergy status to analgesic agent; K52.9 Noninfective gastroenteritis and colitis, unspecified; E86.0 Dehydration; F32.9 Major depressive disorder, single episode, unspecified; F41.9 Anxiety disorder, unspecified; G31.84 Mild cognitive impairment of uncertain or unknown etiology; R55 Syncope and collapse; K52.3 Indeterminate colitis; E83.42 Hypomagnesemia; E83.39 Other disorders of phosphorus metabolism
CPT/HCPCS: 36415; 36600; 71045; 71275; 74177; 80053; 81003; 82248; 82270; 82550; 82553; 82803; 83605; 83690; 83735; 84100; 84484; 85007; 85025; 85651; 86140; 86703; 87015; 87040; 87045; 87207; 87324; 87329; 93005; 93306; 94664; 99291; J2405; J8499